=== PATIENT | female | born 1945 | race African-American/Black ===

== ENCOUNTER 2020-05-25 17:10 | Inpatient (IN) | payer OTHER ==
--- NOTE | 2020-05-25 18:57 | PDOC ---
History of Present Illness - General Chief Complaint: Pain, Acute Stated Complaint: FALL Time Seen by Provider: 05/25/20 17:54 - History of Present Illness Initial Comments: 75 yo female with PMH of HTN, HLD, Schizoaffective DO, Dementia brought in by EMS from [facility] after an unwitnessed fall. She reports falling after trying to open her home door. She is normally ambulatory but was unable to stand up after her fall. She is on aspirin. She denies loss of consciousness or head trauma. She denies fevers, chills, nausea, vomiting, diarrhea, dysuria, cp, sob. Past History - Medical History Allergies/Adverse Reactions: Allergies Allergy/AdvReac Type Severity Reaction Status Date / Time No Known Allergies Allergy Verified 05/25/20 17:23 Home Medications: Ambulatory Orders Acetaminophen [Tylenol] 325 mg PO BID 05/25/20 Amlodipine Besylate 10 mg PO DAILY 05/25/20 Aspirin [ASA -] 81 mg PO DAILY 05/25/20 Haloperidol Decanoate [Haldol Decanoate 100] 100 mg IM MONTHLY 05/25/20 COPD: No GI Disorders: Yes (CONSTIPATION) HTN: Yes Psychiatric Problems: Yes - Immunization History Immunization Up to Date: Yes - Psycho-Social/Smoking History Smoking History: Never smoked - Substance Abuse Hx (Audit-C & DAST Scrn) How often the patient has a drink containing alcohol: Never Score: In Men: 4 or > Positive; In Women: 3 or > Positive: 0 Screen Result (Pos requires Nsg. Audit-10AR): Negative In the last yr the pt used illegal drug/Rx for NonMed reason: No Score: Yes response is considered Positive: 0 Screen Result (Positive result requires Nsg. DAST-10): Negative Review of Systems - Review of Systems Able to Perform ROS?: Yes Constitutional: No: Chills, Diaphoresis, Fever HEENTM: No: Recent change in vision, Double Vision Respiratory: No: Cough, Shortness of Breath Cardiac (ROS): Yes: Syncope. No: Chest Pain, Irregular Heart Rate, Palpitations ABD/GI: No: Constipated, Diarrhea, Nausea, Vomiting : No: Burning, Dysuria, Frequency Integumentary: No: Dryness, Erythema, Flushing Neurological: No: Headache, Tremors, Dizziness Psychiatric: No: Anxiety, Depression, Emotional Problems Endocrine: No: Intolerance to Cold, Intolerance to Heat, Increased Urine *Physical Exam - Vital Signs Last Vital Signs Temp Pulse Resp BP Pulse Ox 98.7 F 106 H 18 132/65 100 05/25/20 17:23 05/25/20 17:23 05/25/20 17:23 05/25/20 17:23 05/25/20 17:23 - Physical Exam General Appearance: Yes: Appropriately Dressed. No: Apparent Distress, Disheveled HEENT: positive: EOMI, Normal Voice Neck: negative: Tender, Rigid Respiratory/Chest: positive: Lungs Clear, Normal Breath Sounds. negative: Chest Tender, Respiratory Distress Cardiovascular: positive: Regular Rhythm, Regular Rate, S1, S2, Gallop/S4 Gastrointestinal/Abdominal: positive: Normal Bowel Sounds, Flat, Soft. 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 CT head was negative. CT cervical identified a herniation at level C3-C4. Troponin was negative. CMP identified an JHONATAN (2.2) CBC was normal. Patient is admitted for JHONATAN and syncope of unknown etiology. Discharge - Discharge Information Problems reviewed: Yes Clinical Impression/Diagnosis: Fall, Weakness, JHONATAN (acute kidney injury), Syncope - Admission Yes - Follow up/Referral - Patient Discharge Instructions - Post Discharge Activity
[2020-05-25 19:05] LABS: HEMATOCRIT 37.4 % (32.4-45.2); HEMOGLOBIN 12.4 GM/dL (10.7-15.3); MCH 28.8 pg (25.7-33.7); MCHC 33.1 g/dl (32.0-36.0); MEAN CELL VOLUME 87.1 fl (80-96); MEAN PLT VOLUME 7.7 fl (7.5-11.1); PLATELET COUNT 310 K/MM3 (134-434); RDW 15.1 % (11.6-15.6); WHITE BLOOD COUNT 9.1 K/mm3 (4.0-10.0)
--- NOTE | 2020-05-25 19:06 | PDOC ---
Documentation entered by Darlyn Castaneda SCRIBE, acting as scribe for Gladys Mcpherson DO. Gladys Mcpherson DO: This documentation has been prepared by the brunildaibe, Darlyn Castaneda SCRIBE, under my direction and personally reviewed by me in its entirety. I confirm that the documentation accurately reflects all work, treatment, procedures, and medical decision making performed by me. Attending Attestation - Resident Resident Name: SuzieericBradleykiki - ED Attending Attestation I have performed the following: I have examined & evaluated the patient, The case was reviewed & discussed with the resident, I agree w/resident's findings & plan, Exceptions are as noted - HPI HPI: 05/25/20 17:57 Patient is a 75 year old female with a significant past medical history of dementia, HNT, HLD, constipation, and schizoaffective disorder, who presents to the ED with a fall from earlier today. Patient stated she was trying to open the door to her apartment when she felt week and fell. Patient denies: fevers, chills, LOC, any vision changes, SOB, chest pain, abdominal pain, extremity edema, any urinary issues, or any other related symptoms. Allergies: NKDA PCP: Dr. Himanshu Gray - Physicial Exam PE: 05/25/20 18:59 Gen: awake, alert, oriented x 3 head: nc/at heent: EOMI, PERRL, MMM neck: supple, no midline ttp, no stepoffs or deformities heart: +s1s2 reg lungs: cta b/l, no chest wall ttp, no deformities palpated back: no midline ttp, no stepoffs or deformities, no ttp across her back ext: FROM of all extremities, no pelvis ttp, pulses intact, muscle strength intact neuro: cn ii-xii grossly intact, no focal deficits - Medical Decision Making 05/25/20 19:02 a/p: 75yo female with a witnessed fall today [place] the [place] -was weak when trying to open her door -denies loc -denies pain at this time -pt with dementia and episodes of forgetfulness -will send labs, ekg, head ct, c spine -ua -will monitor and reassess 05/25/20 21:20 pt with cr 2.[address] neg 05/25/20 21:25 [facility] to [facility], baseline Cr 1.2 as of 05/25/20 21:54 pt with poss syncope and jhonatan resident discussed the case with Valeria who accepts pt to service Discharge - Discharge Information Problems reviewed: Yes Clinical Impression/Diagnosis: Fall, Weakness, JHONATAN (acute kidney injury), Syncope - Follow up/Referral Referrals: Himanshu Gray [Primary Care Provider] - - Patient Discharge Instructions - Post Discharge Activity
[2020-05-25 19:15] LABS: INR 0.97 (0.83-1.09); PROTHROMBIN TIME (PATIENT) 11.5 SEC (9.7-13.0)
[2020-05-25 19:18] LABS: ACTIVATED PTT 23.5 SECONDS (25.2-36.5)
[2020-05-25 19:42] LABS: ALBUMIN 4.1 g/dl (3.4-5.0); BILIRUBIN,TOTAL 0.4 mg/dL (0.2-1); BLOOD UREA NITROGEN 24.3 mg/dL (7-18); CALCIUM 9.9 mg/dL (8.5-10.1); CREATININE 2.2 mg/dL (0.55-1.3); POTASSIUM 4.7 mmol/L (3.5-5.1)
[2020-05-25] MEDS ORDERED: LACTATED RINGERS SOLUTION 1000 ML INFUS.BAG IV ONE (21:24)
--- NOTE | 2020-05-25 22:42 | HP ---
CHIEF COMPLAINT: I fell down on my behind PCP: Dr. Gray HISTORY OF PRESENT ILLNESS: Jada Alvarez is a 75 F with a PMH of Dementia, HTN, HLD, Constipation, and Schizoaffective disorder, who presented to ER from [facility] s/p unwitnessed fall. She reports that she fell down when she was trying to open her door, she dropped some lose change on the ground and tried to pick it back up. She reports that she doesn't remember how she fell, but she fell down and hit her buttocks on the ground. She was not able to get back up, so she called out for help and EMS arrived and brought her to the ER. She denies any prodromal symptoms like light headedness, nausea, vomiting, changes in vision, sweating, palpitations, chest pain, or SOB. after the event she denies any head trauma, LOC, or bowel/urinary incontinence. she is normally able to ambulate (w/o a walker). She reports that she does not remember any recent previous falls. ER course was notable for: (1) BUN/Crea 24.3/2.2 (2) CT C-spine: No acute fractures. Small to moderate central C3-C4 disk herniation (3) CT Head: No acute intracranial pathology Recent Travel: denies PAST MEDICAL HISTORY: As above HPI PAST SURGICAL HISTORY: Denies Social History: Smoking: denies Alcohol: denies Drugs: Denies Allergies No Known Allergies Allergy (Verified 05/25/20 17:23) HOME MEDICATIONS: Home Medications Medication Instructions Recorded Acetaminophen [Tylenol] 325 mg PO BID 05/25/20 Amlodipine Besylate 10 mg PO DAILY 05/25/20 Aspirin [ASA -] 81 mg PO DAILY 05/25/20 Haloperidol Decanoate [Haldol 100 mg IM MONTHLY 05/25/20 Decanoate 100] REVIEW OF SYSTEMS CONSTITUTIONAL: Absent: fever, chills, diaphoresis, generalized weakness, malaise, loss of appetite, weight change HEENT: Absent: rhinorrhea, nasal congestion, throat pain, difficulty swallowing, visual changes CARDIOVASCULAR: Absent: chest pain, syncope, palpitations, irregular heart rate, lightheadedness, peripheral edema RESPIRATORY: Absent: cough, shortness of breath, dyspnea with exertion, orthopnea, wheezing GASTROINTESTINAL: Absent: abdominal pain, abdominal distension, nausea, vomiting, diarrhea, constipation GENITOURINARY: Absent: dysuria, frequency, urgency, hesitancy, hematuria MUSCULOSKELETAL: Present: neck pain, buttock pain Absent: myalgia, arthralgia, joint swelling, back pain SKIN: Absent: rash, itching, pallor NEUROLOGIC: Absent: headache, focal weakness or paresthesias, dizziness, unsteady gait, seizure, bladder or bowel incontinence PHYSICAL EXAMINATION Vital Signs - 24 hr 05/25/20 05/25/20 17:23 19:15 Temperature 98.7 F 98.0 F Pulse Rate 106 H Pulse Rate [ 99 H Left Apical] Respiratory 18 18 Rate Blood Pressure 132/65 Blood Pressure 114/57 L [Right Arm] O2 Sat by Pulse 100 98 Oximetry (%) GENERAL: Awake, alert, and Oriented x2 (to place, person), in no acute distress. HEAD: Normal with no signs of trauma. EYES: Pupils equal, round and reactive to light, extraocular movements intact, sclera anicteric, conjunctiva clear. EARS, NOSE, THROAT: Ears normal, nares patent, oropharynx clear without exudates. Moist mucous membranes. NECK: Normal range of motion, supple, mild tenderness to palpation, without lymphadenopathy, JVD, or masses. LUNGS: Breath sounds equal, clear to auscultation bilaterally. No wheezes, and no crackles. No accessory muscle use. HEART: Regular rate and rhythm, normal S1 and S2 without murmur, rub, Gallop/S4. ABDOMEN: Soft, nontender, not distended, normoactive bowel sounds, no guarding, no rebound, no masses. UPPER EXTREMITIES: 2+ pulses, warm, well-perfused. No cyanosis. No clubbing. No peripheral edema. LOWER EXTREMITIES: 2+ pulses, warm, well-perfused. No calf tenderness. No peripheral edema. NEUROLOGICAL: Intact motor and sensory b/l upper and Lower extremities. Strength 4/5 all extremities PSYCHIATRIC: Cooperative. Good eye contact. Appropriate mood and affect. SKIN: Warm, dry, normal turgor, no rashes or lesions noted, normal capillary refill. Laboratory Results - last 24 hr 05/25/20 05/25/20 05/25/20 18:45 18:45 18:45 WBC 9.1 RBC 4.30 Hgb 12.4 Hct 37.4 MCV 87.1 MCH 28.8 MCHC 33.1 RDW 15.1 Plt Count 310 MPV 7.7 PT with INR 11.50 INR 0.97 PTT (Actin FS) 23.5 L Sodium 140 Potassium 4.7 Chloride 106 Carbon Dioxide 24 Anion Gap 11 BUN 24.3 H Creatinine 2.2 H Est GFR (CKD-EPI)AfAm 24.43 Est GFR (CKD-EPI)NonAf 21.08 Random Glucose 107 H Calcium 9.9 Total Bilirubin 0.4 AST 18 ALT 17 Alkaline Phosphatase 86 Creatine Kinase 138 Troponin I 0.02 Total Protein 8.0 Albumin 4.1 ASSESSMENT/PLAN: 75 F with a PMH of Dementia, HTN, HLD, Schizoaffective disorder, presented to ER from [place] s/p unwitnessed fall. Labs revealed BUN/Crea 24.3/2.2. CT head and CT c-spine showed no acute pathology. Patient is admitted to Tele for workup/management of Fall and JHONATAN. #Fall - unclear etiology, possibly 2/2 to syncope, she does not remember if she had LOC, she has Baseline dementia - CT head: no acute pathology - Orthostatic hypotension less likely - f/u with Echo, EKG in AM - CXR: cardiomegly, no acute infiltrates. - f/u UA to r/o infectious cause for Fall - f/u B12 - PT is consulted - Trend trop - Pain management with Tylenol 325mg Q4H PRN #JHONATAN on CKD - last known Crea, from half-way (1.2 on 11/2019) - f/u kidney/renal u/s - f/u Urine protein/Crea ration and Urinary electrolytes - Nephro is consulted, will f/u with recs - Avoid nephrotoxic drugs #HTN - Will hold Home meds for now (ER bp-114/57), will continue to monitor v/s - Continue ASA 81 #Schizoaffective disorder - Holding Haldol, continue to monitor #FEN - No standing fluids - Continue to monitor electrolytes - Sodium controlled diet #DVT PPX - Heparin 5000u SQ Q8H #DISPO - Will continue to monitor on Tele, pending Nephro recs Visit type - Medication Review Med list reviewed for High Risk Meds patients 65 and older: Yes - Emergency Visit Emergency Visit: Yes ED Registration Date: 05/25/20 Care time: The patient presented to the Emergency Department on the above date and was hospitalized for further evaluation of their emergent condition. - New Patient This patient is new to me today: Yes Date on this admission: 05/28/20 - Critical Care Critical Care patient: No ATTENDING PHYSICIAN STATEMENT I saw and evaluated the patient. I reviewed the resident's note and discussed the case with the resident. I agree with the resident's findings and plan as documented. SUBJECTIVE: OBJECTIVE: ASSESSMENT AND PLAN:
[2020-05-25] MEDS ORDERED: HEPARIN NA (PORCINE) 5,000 UNITS/ML 1ML VIAL ONE (23:49)
[2020-05-25] MEDS ORDERED: ACETAMINOPHEN 325 MG TABLET (FP) PO PRN (23:50)
--- NOTE | 2020-05-25 23:53 | PN ---
Teaching Attending Note Name of Resident: Marissa Ruiz ATTENDING PHYSICIAN STATEMENT I saw and evaluated the patient. I reviewed the resident's note and discussed the case with the resident. I agree with the resident's findings and plan as documented. SUBJECTIVE: 75 F with a PMH of Dementia, HTN, HLD, Constipation, and Schizoaffective disor vanessa, who presented to ER from [facility] after having unwitnessed fall. As per patient, she was trying to picker / packer coins from the floor and fell down on her buttocks. No head trauma. She exactly doesn't remember how she fell down but denied dizziness, lightheadedness, chest pain, palpitations prior or after the fall. She was not able to get up so she called for help and ems was called. It's unsure that she lost consciousness how ever upon asking again she denied LOC. No urinary symptoms OBJECTIVE: Last Vital Signs Temp Pulse Resp BP Pulse Ox 98.0 F 99 H 18 114/57 L 98 05/25/20 19:15 05/25/20 19:15 05/25/20 19:15 05/25/20 19:15 05/25/20 19:15 GENERAL elderly female, NAD, speaks slow HEENT: PERRLA, EOMI, NC/AT NECK: supple, no lymphadenopathy, thyroid WNL CARDIOVASCULAR: RRR, s1s2+, No MRG LUNGS/RESPIRATORY: no respiratory distress, CTAB GI/ABDOMEN: non tender soft, ND, +BS, no organomegaly : no CVA tenderness MSK/EXTREMITIES: no edema, peripheral pulses + DERM/SKIN: warm and dry, no pallor, no jaundice, no rash, no pathologic- appearing bruising, no skin breakdown, no cuts, no lesions NEUROLOGICAL: GCS 15, CN II-XII grossly intact,No focal neurologic deficit BUN/CR- 24.3/2.[address] C spine no acute pathology Small to moderate central C3-C4 disk herniation ASSESSMENT AND PLAN: S/p FAll cant rule out syncopal episode JHONATAN on CKD Dementia, HTN, HLD, Schizoaffective disorder Admit to tele Serial cardiac enzymes, EKG ECHO UA, urine lytes, urine spot pr/cr TSH,b12,mg,phos,cpk, vit D renal US nephrology eval gentle hydration resume home meds DVT ppx PT eval discussed with house staff in details in conference r
[2020-05-26] MEDS: HEPARIN NA (PORCINE) 5,000 UNITS/ML 1ML VIAL SQ SCH ×4 (00:16→21:22)
[2020-05-26] MEDS ORDERED: SODIUM CHLORIDE 1,000 ML IV SCH (05:00)
[2020-05-26] MEDS ORDERED: HEPARIN NA (PORCINE) 5,000 UNITS/ML 1ML VIAL ONE ×2 (05:14→14:13)
[2020-05-26 05:55] LABS: EPI CELLS 19 /uL (0-25.1); HYALINE CASTS 5 /uL (0-3.1); URINE APPEARANCE CLOUDY; URINE BACTERIA 57 /uL (0-1359); URINE BILIRUBIN NEGATIVE (NEGATIVE); URINE COLOR YELLOW; URINE GLUCOSE (UA) 1+ (NEGATIVE); URINE KETONE TRACE (NEGATIVE); URINE LEUK ESTERASE NEGATIVE (NEGATIVE); URINE NITRITE NEGATIVE (NEGATIVE); URINE PROTEIN 1+ (NEGATIVE); URINE RBC 11 /uL (0-23.9); URINE UROBILINOGEN 0.2 mg/dL (0.2-1.0); URINE WBC 18 /uL (0-25.8)
[2020-05-26 06:01] LABS: HEMATOCRIT 32.9 % (32.4-45.2); HEMOGLOBIN 10.9 GM/dL (10.7-15.3); MCH 28.6 pg (25.7-33.7); MEAN CELL VOLUME 86.6 fl (80-96); MEAN PLT VOLUME 7.4 fl (7.5-11.1); PLATELET COUNT 293 K/MM3 (134-434); RDW 15.4 % (11.6-15.6); WHITE BLOOD COUNT 7.7 K/mm3 (4.0-10.0)
[2020-05-26 07:05] LABS: ALBUMIN 3.5 g/dl (3.4-5.0); BILIRUBIN,TOTAL 0.4 mg/dL (0.2-1); BLOOD UREA NITROGEN 29.5 mg/dL (7-18); CALCIUM 9.3 mg/dL (8.5-10.1); CREATININE 1.8 mg/dL (0.55-1.3); MAGNESIUM 2.6 mg/dL (1.8-2.4); PHOSPHOROUS 4.2 mg/dL (2.5-4.9); POTASSIUM 4.5 mmol/L (3.5-5.1)
[2020-05-26] MEDS ORDERED: ASPIRIN 81 MG CHEWABLE TABLETS ONE (09:42)
[2020-05-26] MEDS: ASPIRIN 81 MG CHEWABLE TABLETS PO SCH (10:03)
--- NOTE | 2020-05-26 10:45 | PN ---
Progress Note (short form) - Note Progress Note: NEUROSURGERY CONSULT DICTATED Pt examined Chart reviewed CT reviewed h/o dementia, HTN, HLD, and Schizoaffective disorder here after unwitnessed fall. Denies any prior light headedness, nausea, vomiting, changes in vision, chest pain, or SOB. Amnestic of the fall itself. Denies weakness, numbness, bowel/urinary incontinence. She reports being able to ambulate by herself PE: AF, VSS General- unremarkable, speech fkuent, memory poor; Neck- with no tenderness, slight kyphosis CN- intact; Motor- at least 4/5 B UE/LE; Sensation- intact LT; DTR- hyporeflexic Head CT- no acute fx or bleed, mild atrophy C spine CT- reversal of lordosis, spondylosis and DDD multilevel, small central disc protrusion C3-4 > C4-5, partially calcified Cervical DDD with spondylosis and kyphosis Doubt acute herniation given asymptomatic nature of the dz PT for mobility and safety Soft collar for comfort No neurosurgical intervention indicated
--- NOTE | 2020-05-26 11:14 | EKG ---
Test Reason : Blood Pressure : / mmHG Vent. Rate : 094 BPM Atrial Rate : 094 BPM P-R Int : 122 ms QRS Dur : 098 ms QT Int : 366 ms P-R-T Axes : 074 014 054 degrees QTc Int : 457 ms NORMAL SINUS RHYTHM POSSIBLE ANTERIOR INFARCT , AGE UNDETERMINED NONSPECIFIC ST AND T WAVE ABNORMALITY Confirmed by BART SHEPPARD MD ([id number]) on 05/26/2020 11:14:49 AM Referred By: Confirmed By:BART SHEPPARD MD
--- NOTE | 2020-05-26 12:55 | ECHO ---
Version: 1 Name: MICHAEL PICKERING Exam: Adult Echocardiogram Study Date: 05/26/2020, 11:35 AM Age: 75 Years MMode/2D Measurements & Calculations IVSd: 0.89 cm LVIDs: 4.8 cm LVIDd: 5.8 cm LVPWd: 1.00 cm LAV (MOD-bp): 60.0 ml ACS: 1.50 cm Ao root diam: 2.9 cm LVOT diam: 2.04 cm LA dimension: 3.5 cm Doppler Measurements & Calculations MV E max daniel: 83.3 cm/sec Med E/e': 22.7 MV A max daniel: 138.8 cm/sec Med Peak E' Daniel: 3.7 cm/sec MV E/A: 0.60 Lat E/e': 7.7 Lat Peak E' Daniel: 10.8 cm/sec MR max P.7 mmHg Ao max P.7 mmHg VENANCIO(I,D): 2.25 cm Ao mean P.9 mmHg LV V1 mean: 65.4 cm/sec Ao V2 max: 129.5 cm/sec LV V1 mean P.95 mmHg PI end-d daniel: 78.7 cm/sec TR max daniel: 203.8 cm/sec TR max P.6 mmHg Left Ventricle The left ventricle is mildly dilated. Ejection Fraction = 30-35%. There is severe global hypokinesis of the left ventricle. Right Ventricle The right ventricle is normal in size and function. Atria The left atrium is mildly dilated. Mitral Valve The mitral valve is grossly normal. There is no mitral valve stenosis. The mitral regurgitant jet is eccentrically directed. There is moderate to severe mitral regurgitation. Tricuspid Valve The tricuspid valve is not well visualized, but is grossly normal. There is mild tricuspid regurgita tion. Right ventricular systolic pressure is normal. Aortic Valve The aortic valve opens well. No hemodynamically significant valvular aortic stenosis. No aortic regu rgitation is present. Pulmonic Valve The pulmonic valve is not well seen, but is grossly normal. There is no pulmonic valvular stenosis. Mild pulmonic valvular regurgitation. Great Vessels The aortic root is normal size. Pericardium/Pleura There is no pericardial effusion. Summary Statements The left ventricle is mildly dilated. There is severe global hypokinesis of the left ventricle. Ejection Fraction = 30-35%. The left atrium is mildly dilated. The mitral regurgitant jet is eccentrically directed. There is moderate to severe mitral regurgitation. There is mild tricuspid regurgitation. The aortic root is normal size. There is no pericardial effusion. MD Rothman *Gris 05/26/2020, 12:55 PM Ordering Physician: Marissa Lehman Referring Physician: MARISSA LEHMAN Performed By: Mady Blackburn
--- NOTE | 2020-05-26 13:06 | PN ---
Physical Exam: SUBJECTIVE: Patient seen and examined in the ED awaiting bed assignment. She tells me she feels well and denies any malaise. She is not a good historian but overall can answers some questions appropriately. I called her brother Shaista Evans [phone] to obtain further information on patient, but brother not familiar with her past medical history. Tells me that patient usually is seen at [facility]. I called [facility] [phone] and spoke to Adin Day (case management) and fax number provided so that past medical records can be faxed over to me. Adin was not able to answer my questions as to pmhx but informed me she will fax over documents to our fax [phone]. OBJECTIVE: Patient is a 75 year old female (resident of [facility]). Patient was admitted on 05/25/2020 after she fell at her facility. Per admitting report, patient fell and was unable to get back up on her own. No reported prodormal symptoms. She was found to have JHONATAN (unknown baseline). Routine echo done today low EF and cardiology was consulted. C spine shows c3-c4 disc herniation. She was evaluated by neurosurgery and a soft collar recommended. covid status: pending Vital Signs Period Temp Pulse Resp BP Sys/Ontiveros Pulse Ox Last 24 Hr 97.9 F-98.7 F 71-106 17-19 99-132/52-74 96-100 GENERAL: The patient is awake, alert, forgetful HEAD: Normal with no signs of trauma. EYES: PERRL, extraocular movements intact, sclera anicteric, conjunctiva clear. No ptosis. ENT: Ears normal, nares patent, oropharynx clear without exudates, moist mucous membranes. NECK: Trachea midline, full range of motion, supple. LUNGS: Breath sounds equal, clear to auscultation bilaterally, no wheezes, no crackles, no accessory muscle use. HEART: Regular rate and rhythm ABDOMEN: Soft, nontender, nondistended, normoactive bowel sounds EXTREMITIES: no edema. NEUROLOGICAL: Normal speech, gait not observed. PSYCH: Normal mood, normal affect. SKIN: Warm, dry, normal turgor, no rashes or lesions noted Laboratory Results - last 24 hr 05/25/20 05/25/20 05/25/20 18:45 18:45 18:45 WBC 9.1 RBC 4.30 Hgb 12.4 Hct 37.4 MCV 87.1 MCH 28.8 MCHC 33.1 RDW 15.1 Plt Count 310 MPV 7.7 PT with INR 11.50 INR 0.97 PTT (Actin FS) 23.5 L Sodium 140 Potassium 4.7 Chloride 106 Carbon Dioxide 24 Anion Gap 11 BUN 24.3 H Creatinine 2.2 H Est GFR (CKD-EPI)AfAm 24.43 Est GFR (CKD-EPI)NonAf 21.08 Random Glucose 107 H Calcium 9.9 Phosphorus Magnesium Total Bilirubin 0.4 AST 18 ALT 17 Alkaline Phosphatase 86 Creatine Kinase 138 Creatine Kinase Index CK-MB (CK-2) Troponin I 0.02 Total Protein 8.0 Albumin 4.1 Vitamin B12 Urine Color Urine Appearance Urine pH Ur Specific [place] Urine Protein Urine Glucose (UA) Urine Ketones Urine Blood Urine Nitrite Urine Bilirubin Urine Urobilinogen Ur Leukocyte Esterase Urine WBC (Auto) Urine RBC (Auto) Urine Casts (Auto) U Pathogenic Cast Auto U Epithel Cells (Auto) Urine Bacteria (Auto) Ur Random Creatinine U Random Total Protein Ur Random Sodium Ur Random Potassium Ur Random Chloride Protein/Creatinin Ratio 05/26/20 05/26/20 05/26/20 00:29 05:30 05:30 WBC RBC Hgb Hct MCV MCH MCHC RDW Plt Count MPV PT with INR INR PTT (Actin FS) Sodium Potassium Chloride Carbon Dioxide Anion Gap BUN Creatinine Est GFR (CKD-EPI)AfAm Est GFR (CKD-EPI)NonAf Random Glucose Calcium Phosphorus Magnesium Total Bilirubin AST ALT Alkaline Phosphatase Creatine Kinase Creatine Kinase Index CK-MB (CK-2) Troponin I 0.03 Total Protein Albumin Vitamin B12 Urine Color Yellow Urine Appearance Cloudy Urine pH 5.0 Ur Specific [place] 1.022 Urine Protein 1+ H Urine Glucose (UA) 1+ H Urine Ketones Trace H Urine Blood Negative Urine Nitrite Negative Urine Bilirubin Negative Urine Urobilinogen 0.2 Ur Leukocyte Esterase Negative Urine WBC (Auto) 18 Urine RBC (Auto) 11 Urine Casts (Auto) 5 U Pathogenic Cast Auto Non seen U Epithel Cells (Auto) 19 Urine Bacteria (Auto) 57 Ur Random Creatinine 254.0 H U Random Total Protein 82.9 H Ur Random Sodium 38 L Ur Random Potassium 79.0 Ur Random Chloride 44 L Protein/Creatinin Ratio 0.3 05/26/20 05/26/20 05:41 05:41 WBC 7.7 RBC 3.80 Hgb 10.9 Hct 32.9 MCV 86.6 MCH 28.6 MCHC 33.0 RDW 15.4 Plt Count 293 MPV 7.4 L PT with INR INR PTT (Actin FS) Sodium 142 Potassium 4.5 Chloride 107 Carbon Dioxide 27 Anion Gap 7 L BUN 29.5 H Creatinine 1.8 H Est GFR (CKD-EPI)AfAm 31.14 Est GFR (CKD-EPI)NonAf 26.87 Random Glucose 76 Calcium 9.3 Phosphorus 4.2 Magnesium 2.6 H Total Bilirubin 0.4 AST 23 ALT 16 Alkaline Phosphatase 76 Creatine Kinase 379 H Creatine Kinase Index 1.8 CK-MB (CK-2) 6.9 H Troponin I 0.04 Total Protein 7.0 Albumin 3.5 Vitamin B12 702 Urine Color Urine Appearance Urine pH Ur Specific [place] Urine Protein Urine Glucose (UA) Urine Ketones Urine Blood Urine Nitrite Urine Bilirubin Urine Urobilinogen Ur Leukocyte Esterase Urine WBC (Auto) Urine RBC (Auto) Urine Casts (Auto) U Pathogenic Cast Auto U Epithel Cells (Auto) Urine Bacteria (Auto) Ur Random Creatinine U Random Total Protein Ur Random Sodium Ur Random Potassium Ur Random Chloride Protein/Creatinin Ratio Active Medications Generic Name Dose Route Start Last Admin Trade Name Freq PRN Reason Stop Dose Admin Acetaminophen 325 mg 05/25/20 23:50 Tylenol - PO Q4H PRN MODERATE PAIN 4-6 Aspirin 81 mg 05/26/20 10:00 05/26/20 10:03 Asa - PO 81 mg DAILY PAWAN Administration Atorvastatin Calcium 80 mg 05/26/20 22:00 Lipitor - PO HS PAWAN Heparin Sodium (Porcine) 5,000 unit 05/25/20 23:45 05/26/20 06:18 Heparin - SQ 5,000 unit TID PAWAN Administration Sodium Chloride 1,000 mls @ 75 mls/hr 05/26/20 05:00 05/26/20 07:47 Normal Saline - IV 75 mls/hr ASDIR PAWAN Administration ASSESSMENT/PLAN: Problem List - Problems (1) Cervical disc herniation Assessment/Plan: C spine CT- reversal of lordosis, spondylosis and DDD multilevel, small central disc protrusion C3-4 to C4-5, partially calcified for soft collar seen by neurosurgery physical therapy Code(s): M50.20 - OTHER CERVICAL DISC DISPLACEMENT, UNSP CERVICAL REGION (2) Systolic CHF Assessment/Plan: echo shows severe global LV systolic dysfunction LVEF 30-35%. patient denies any shortness of breath or chest pain. no echos done at [facility] to compare. Patient with recent admission to [facility] as per her brother, attempting to get records from her nursing facility. Seen by cardiology, recommend low dose metoprolol or toprol 25mg xl no diuretics recommended as no signs of volume overload. she is on room air and stable. jermain/arb recommended once renal function improves Code(s): I50.20 - UNSPECIFIED SYSTOLIC (CONGESTIVE) HEART FAILURE (3) Fall Assessment/Plan: for PT eval maintain safety precautions fall precautions Code(s): W19.XXXA - UNSPECIFIED FALL, INITIAL ENCOUNTER (4) JHONATAN (acute kidney injury) Assessment/Plan: renal ultrasound shows moderately atrophic kidneys with no evidence of hydronephrosis or acute path. unknown baseline creatinine Code(s): N17.9 - ACUTE KIDNEY FAILURE, UNSPECIFIED (5) Syncope Assessment/Plan: monitor on tele for any arrhythmias. monitor vitals labs, orthostatics head ct negative for acute pathology Code(s): R55 - SYNCOPE AND COLLAPSE (6) Weakness Code(s): R53.1 - WEAKNESS (7) DVT prophylaxis Assessment/Plan: heparin tid Code(s): Z29.9 - ENCOUNTER FOR PROPHYLACTIC MEASURES, UNSPECIFIED Visit type - Emergency Visit Emergency Visit: Yes ED Registration Date: 05/25/20 Care time: The patient presented to the Emergency Department on the above date and was hospitalized for further evaluation of their emergent condition. - New Patient This patient is new to me today: Yes Date on this admission: 05/26/20 - Critical Care Critical Care patient: No - Discharge Referral Referred to [facility] Med P.C.: No - Medication Review Med list reviewed for High Risk Meds patients 65 and older: No
--- NOTE | 2020-05-26 15:12 | CON.CARD ---
Consult Consult Specialty:: Cardiology Referred by:: Hospitalist Reason for Consultation:: low ef, falls, confusion - History of Present Illness Chief Complaint: fall History of Present Illness: 75 year old woman with pmh HTN, HLD, Dementia, schizoaffective disorder, admitted from [facility] after a fall. Pt was seen and examined today in [facility]. she is awake and alert. 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 She denies any LOC. She denies any chest pain, sob, palpitations, lightheadedness, or dizziness prior to falling. No sob, pnd, orthopnea, or LE edema. She denies knowledge of any prior cardiac conditions but she states that she has been admitted to [facility] previously and she thinks that they may have said something about her heart. 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 Cardio/Vascular: Yes: HTN - Smoking History Smoking history: Never smoked - Social History Usual Living Arrangement: Assisted Living Home Medications - Allergies Allergies/Adverse Reactions: Allergies Allergy/AdvReac Type Severity Reaction Status Date / Time No Known Allergies Allergy Verified 05/25/20 17:23 - Home Medications Home Medications: Ambulatory Orders Acetaminophen [Tylenol] 325 mg PO BID 05/25/20 Amlodipine Besylate 10 mg PO DAILY 05/25/20 Aspirin [ASA -] 81 mg PO DAILY 05/25/20 Haloperidol Decanoate [Haldol Decanoate 100] 100 mg IM MONTHLY 05/25/20 Family Medical History Family History: Denies Review of Systems - Review of Systems Constitutional: denies: No Symptoms, Chills, Diaphoresis, Fever, Lethargy, Loss of Appetite, Malaise, Night Sweats, Unintentional Wgt. Loss, Weakness, Other Eyes: denies: No Symptoms, Blind Spots, Blurred Vision, Double Vision, Eye Pain, Floaters, Photophobia, Recent Change in Vision, Other HENT: denies: No Symptoms, Difficult Swallowing, Ear Discharge, Ear Pain, Epistaxis, Gingival Bleeding, Hearing Loss, Mouth Swelling, Nasal Congestion, Ocular Prosthesis, Throat Pain, Toothache, Ringing in Ears, Other Neck: denies: No Symptoms, Decreased ROM, Lumps, Pain on Movement, Stiffness, Swollen Glands, Tenderness, Other Cardiovascular: denies: No Symptoms, Chest Pain, Edema, Palpitations, Shortness of Breath, Other Respiratory: denies: No Symptoms, Cough, Exercise Intolerance, Hemoptysis, Orthopnea, PND, Snoring, SOB, SOB on Exertion, Wheezing, Other Gastrointestinal: denies: No Symptoms, Abdominal Pain, Bloating, Constipation, Diarrhea, Dysphagia, Indigestion, Melena, Nausea, Rectal Bleeding, Vomiting, Vomiting Blood, Other Genitourinary: denies: No Symptoms, Burning, Discharge, Dysuria, Flank Pain, Frequency, Hematuria, Incontinence, Lesions, Menses, Pain, Testicular Mass, Testicular Pain, Testicular Swelling, Urgency, Vaginal Bleeding, Other Breasts: denies: No Symptoms Reported, See HPI, Breast Implants, Discharge from Nipple, Lumps, Pain, Skin Changes, Other Musculoskeletal: denies: No Symptoms, Back Pain, Crepitus, Decreased ROM, Extremity Pain, Joint Pain, Joint Swelling, Muscle Pain, Muscle Cramps, Muscle Weakness, Other Integumentary: denies: No Symptoms, Blister, Bruising, Change in Color, Eczema, Erythema, Incision, Lesions, Lump, Pallor, Pruritis, Rash, Wound, Other Neurological: denies: No Symptoms, Change in LOC, Change in Speech, Confusion, Dizziness, Headache, Incoordination, Numbness, Parasthesia, Pre-Existing Deficit, Seizure, Syncope, Tremors, Unsteady Gait, Weakness, Other Endocrine: denies: No Symptoms, Excessive Sweating, Flushing, Increased Hunger, Increased Thirst, Intolerance to Cold, Intolerance to Heat, Unexplained Weight Gain, Unexplained Weight Loss, Other Hematology/Lymphatic: denies: No Symptoms, Easily Bruised, Excessive Bleeding, Swollen Glands, Other Psychiatric: denies: No Symptoms, Altered Sleep Pattern, Anxiety, Depression, Hallucinations, Panic, Paranoia, Suicidal, Other - Risk Factors Known Risk Factors: Yes: Age, Hypertension Vital Signs: Vital Signs Temperature 98.9 F 05/26/20 14:30 Pulse Rate 97 H 05/26/20 14:30 Respiratory Rate 17 05/26/20 10:03 Blood Pressure 103/65 05/26/20 14:30 O2 Sat by Pulse Oximetry (%) 100 05/26/20 14:30 Constitutional: Yes: No Distress, Calm Eyes: Yes: Conjunctiva Clear, EOM Intact HENT: Yes: Atraumatic, Normocephalic Neck: Yes: Supple, Trachea Midline Respiratory: Yes: Regular, CTA Bilaterally. No: Rales, Rhonchi, SOB, Wheezes Gastrointestinal: Yes: Normal Bowel Sounds, Soft. No: Distention, Tenderness Cardiovascular: Yes: Regular Rate and Rhythm. No: Bradycardia, Tachycardia, Pulse Irregular, Gallop, Rub, Varicosities JVD: No Carotid Bruit: No PMI: Non-Displaced Heart Sounds: Yes: S1, S2. No: Split S2, S3, S4, Clicks, Gallop, Rub, Bruit Murmur: No: Systolic Murmur, Diastolic Murmur Musculoskeletal: Yes: WNL Extremities: Yes: WNL Edema: No Peripheral Pulses WNL: Yes Peripheral Pulses: 2+ Left Doralis Pedis, 2+ Right Dorsalis Pedis Neurological: Yes: Alert Psychiatric: Yes: Alert - Other Data Labs, Other Data: CBC, BMP 05/26/20 05:41 05/26/20 05:41 INR, PTT INR 0.97 (0.83-1.09) 05/25/20 18:45 Troponin, BNP 05/25/20 05/26/20 05/26/20 18:45 00:29 05:41 Troponin I 0.02 0.03 0.04 Troponin, BNP 05/25/20 05/26/20 05/26/20 18:45 00:29 05:41 Troponin I 0.02 0.03 0.04 nsr 94bpm, possible anterior infarct age undetermined, nsst Echo: Report Reviewed Imaging - Results Chest X-ray: Report Reviewed, Image Reviewed EKG: Report Reviewed, Image Reviewed Other: Report Reviewed, Image Reviewed Assessment/Plan 75 year old woman with pmh HTN, HLD, Dementia, schizoaffective disorder, admitted from [facility] after a fall. she is awake and alert. 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 She denies any LOC. She denies any chest pain, sob, palpitations, lightheadedness, or dizziness prior to falling. No sob, pnd, orthopnea, or LE edema. She denies knowledge of any prior cardiac conditions but she states that she has been admitted to [facility] previously and she thinks that they may have said something about her heart. Cardiomyopathy and mitral regurgitation -severe global LV systolic dysfunction LVEF 30-35% -moderate to severe mitral regurgitation -unlikely an acute event -pt is euvolemic on exam with no chest pain or sob -most likely chronic systolic chf -reports being admitted at [facility] previously, would be helpful to review records if an echo was done -discussed with her if she would even consider a cardiac cath or open heart surgery and she states she would not want that -would recc to pursue conservative management -start low dose Metoprolol, can use Toprol XL 25mg daily as long as BP tolerates -once creatinine stable can start low dose [id number] ie Lisinopril 2.5mg daily if bp tolerates -does not require diuretics at this time -would not recc pursuing invasive work up Fall-pt reports mechanical fall -the history she gave me appears consistent with history she reported earlier to others -does not appear that there was LOC -unlikely arrhythmia induced despite her cardiomyopathy -can monitor tele 24 hours, if no arrhythmias can have further event monitoring as outpatient Please call with any questions.
[2020-05-26 15:38] VITALS: BMI 24.1
--- NOTE | 2020-05-26 16:02 | CONSULT ---
Consult Consult Specialty:: Nephrology Reason for Consultation:: JHONATAN - History of Present Illness Chief Complaint: s/p fall History of Present Illness: Pt is a 75 year old female with pmhx of dementia, htn, hld, constipation, who presents to er after a fall. 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 She denies history of ckd. She is a poor historian. She says that she fell down while trying to open a door. She does not remember how she fell but remembers falling on her buttocks. She denies fevers or chills. SHe denies LOC. 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 Cardio/Vascular: Yes: HTN - Smoking History Smoking history: Never smoked - Social History Usual Living Arrangement: Assisted Living Home Medications - Allergies Allergies/Adverse Reactions: Allergies Allergy/AdvReac Type Severity Reaction Status Date / Time No Known Allergies Allergy Verified 05/25/20 17:23 - Home Medications Home Medications: Ambulatory Orders Acetaminophen [Tylenol] 325 mg PO BID 05/25/20 Amlodipine Besylate 10 mg PO DAILY 05/25/20 Aspirin [ASA -] 81 mg PO DAILY 05/25/20 Haloperidol Decanoate [Haldol Decanoate 100] 100 mg IM MONTHLY 05/25/20 Family Medical History Family History: Denies Review of Systems - Review of Systems Constitutional: reports: Malaise Eyes: reports: No Symptoms HENT: reports: No Symptoms Neck: reports: No Symptoms Cardiovascular: reports: No Symptoms Respiratory: reports: No Symptoms Gastrointestinal: reports: No Symptoms Genitourinary: reports: No Symptoms Musculoskeletal: reports: No Symptoms Integumentary: reports: No Symptoms Neurological: reports: No Symptoms Endocrine: reports: No Symptoms Hematology/Lymphatic: reports: No Symptoms Psychiatric: reports: No Symptoms Physical Exam Vital Signs: Vital Signs Temperature 98.9 F 05/26/20 15:29 Pulse Rate 94 H 05/26/20 15:29 Respiratory Rate 16 05/26/20 15:29 Blood Pressure 140/94 05/26/20 15:29 O2 Sat by Pulse Oximetry (%) 99 05/26/20 15:29 Constitutional: Yes: Calm Eyes: Yes: Conjunctiva Clear HENT: Yes: Atraumatic Neck: Yes: Supple Cardiovascular: Yes: S1, S2 Respiratory: Yes: CTA Bilaterally Gastrointestinal: Yes: Normal Bowel Sounds, Soft Musculoskeletal: Yes: WNL Edema: No Neurological: Yes: Confusion Labs: CBC, BMP 05/26/20 05:41 05/26/20 05:41 Imaging - Results Ultrasound: Report Reviewed Problem List - Problems (1) JHONATAN (acute kidney injury) Code(s): N17.9 - ACUTE KIDNEY FAILURE, UNSPECIFIED (2) Fall Code(s): W19.XXXA - UNSPECIFIED FALL, INITIAL ENCOUNTER Assessment/Plan Current Medications Generic Name Dose Route Start Last Admin Trade Name Freq PRN Reason Stop Dose Admin Acetaminophen 325 mg 05/25/20 23:50 Tylenol - PO Q4H PRN MODERATE PAIN 4-6 Aspirin 81 mg 05/26/20 10:00 05/26/20 10:03 Asa - PO 81 mg DAILY PAWAN Administration Atorvastatin Calcium 80 mg 05/26/20 22:00 Lipitor - PO HS PAWAN Heparin Sodium (Porcine) 5,000 unit 05/25/20 23:45 05/26/20 14:19 Heparin - SQ 5,000 unit TID PAWAN Administration Sodium Chloride 1,000 mls @ 75 mls/hr 05/26/20 05:00 05/26/20 07:47 Normal Saline - IV 75 mls/hr ASDIR PAWAN Administration Metoprolol Succinate 25 mg 05/26/20 19:00 Toprol Xl - PO DAILY PAWAN Laboratory Tests 04/24/11 05/25/20 05/26/20 13:00 18:45 05:41 Creatinine 0.8 2.2 H 1.8 H Impression 1. jhonatan 2. s/p fall 3. htn 4. hld 5. alzheimers dementia Plan - cont fluids - repeat labs in am - bp is stable - reservations manager is improving - renal ultrasound reviewed
[2020-05-26] MEDS ORDERED: SODIUM CHLORIDE 0.45% 1,000 ML IV SCH (19:30)
[2020-05-26] MEDS: metoPROLOL SUCCINATE 25 MG TAB.SR.24H (FP) PO SCH (20:10)
--- NOTE | 2020-05-26 20:31 | CONS ---
DATE OF CONSULTATION: 05/26/2020 REQUESTING PHYSICIAN: Jagdeep Alvarez NP. CONSULTING PHYSICIAN: Bebe Correa MD, neurosurgery. CHIEF COMPLAINT: Cervical disk disease. HISTORY OF PRESENT ILLNESS: The patient is a 75-year-old right-handed female with a history of hypertension, dementia, hypercholesterolemia, and schizoaffective disorder who was here for an evaluation after an unwitnessed fall. The patient denies any prior headache, lightheadedness, nausea, vomiting, change of vision, chest pain or shortness of breath prior to the fall. She does not remember what happened during the fall and after the fall. This occurred yesterday. Presently, she denies any headache, no nausea or vomiting. She has no bowel or bladder incontinence. She states she is able to ambulate by herself without any assistive devices. She has no increasing weakness or numbness to her extremities. PAST MEDICAL HISTORY: Significant for hypertension, hypercholesterolemia, dementia, schizoaffective disorder. CURRENT MEDICATIONS: Include: 1. Subcutaneous heparin. 2. Lipitor. 3. Baby aspirin. 4. Tylenol. ALLERGIES: No known drug allergies. FAMILY HISTORY: Noncontributory. SOCIAL HISTORY: She does not smoke or drink. She lives in an assisted living facility. REVIEW OF SYSTEMS: Otherwise negative for other major constitutional, head/neck, cardiovascular, pulmonary, gastrointestinal, genitourinary, endocrinologic, neurologic, or psychological problems except for the above. PHYSICAL EXAMINATION: Vital signs: Temperature 98.6, blood pressure 106/56 with pulse rate of 78, O2 saturation 100% on room air. HEENT: Normocephalic, atraumatic, anicteric. Neck: Supple with no lymphadenopathy, no carotid bruit. Coronary: Regular rhythm. Lungs: Clear to auscultation bilaterally. Abdomen: Benign. Extremities: No signs of DVT. Back: Examination of her cervical spine demonstrated no paraspinal muscle spasm and no tenderness to palpation. She is slightly kyphotic in a flexed position. Neurologic: She is awake, alert, oriented x2. Her speech is fluent. Memory is poor however. Cranial nerves examination intact 2-12. Motor examination shows at least 4/5 strength in bilateral upper and lower extremities. Sensory examination is intact to light touch. Deep tendon reflexes are hyporeflexive throughout. Gait is not tested for safety reasons. Cerebellar examination demonstrates no tremor. LABORATORY EXAMINATION: Shows white blood cell count of 7.7, hemoglobin is 10.9, INR is 0.97. PTT is 23.5. BUN and creatinine are 30 and 1.8 respectively. Estimated GFR is 31. Troponin 0.02. COVID serology is pending. CT scan of the head demonstrated mild cerebral atrophy. There is no acute fracture or hematoma. CT scan of cervical spine demonstrated multilevel degenerative disk disease with spondylosis. There are also facet arthrosis. There is a calcified central disk protrusion which is small to moderate in nature at C3-4. There is also small calcified central disk protrusion at C4-5. There is no fracture or dislocation. Kyphotic deformity is noted in the mid cervical spine through the upper cervical spine. IMPRESSION: 1. Multilevel cervical degenerative disk disease and spondylosis with central disk protrusion at C3-4 and C4-5, minimal if at all symptomatic. 2. Dementia. 3. Schizoaffective disorder. 4. Hypertension. 5. Hypercholesterolemia. RECOMMENDATION: The patient presents with mechanical fall after probable syncopal episode. She denies any headache, nausea, vomiting, weakness, numbness of extremity or neck pain. She is found to have cervical disk protrusion which is likely chronic in nature. She has no focal neurologic deficit referable to the cervical disk disease. She has no localized pain either at this point. No neurosurgical intervention is indicated nor recommended at this time. Soft cervical collar can be used for comfort care and a rigid collar is not recommended at this time. A course of physical therapy should be considered for safety precautions as well as fall precautions. The nature of her syncope is still not known at this time, and further medical evaluation per the medical team is recommended. The above was discussed with the patient at bedside. She would like to return to her assisted living facility whenever possible. She was advised to be careful and to take things easy to prevent another fall if possible. All questions were answered at bedside. The CT scan findings were discussed with the patient. BEBE CORREA M.D. DORCAS/[id number] MTDD
[2020-05-26] MEDS: ATORVASTATIN CA 80 MG TABLET (FP) PO SCH (21:21)
[2020-05-27] MEDS: HEPARIN NA (PORCINE) 5,000 UNITS/ML 1ML VIAL SQ SCH ×3 (06:19→21:54)
[2020-05-27 08:10] LABS: BASO % 0.8 % (0-2.0); EOS % 1.1 % (0-4.5); HEMATOCRIT 36.1 % (32.4-45.2); HEMOGLOBIN 11.7 GM/dL (10.7-15.3); LYMPH % 40.1 % (8-40); MCH 28.2 pg (25.7-33.7); MCHC 32.5 g/dl (32.0-36.0); MEAN CELL VOLUME 86.8 fl (80-96); MEAN PLT VOLUME 7.4 fl (7.5-11.1); MONO % 8.5 % (3.8-10.2); NEUT % 49.5 % (42.8-82.8); PLATELET COUNT 283 K/MM3 (134-434); RBC 4.16 M/mm3 (3.60-5.2); RDW 15.4 % (11.6-15.6); WHITE BLOOD COUNT 6.8 K/mm3 (4.0-10.0)
[2020-05-27 08:41] LABS: ALBUMIN 3.1 g/dl (3.4-5.0); BILIRUBIN,TOTAL 0.4 mg/dL (0.2-1); BLOOD UREA NITROGEN 20.1 mg/dL (7-18); CALCIUM 8.8 mg/dL (8.5-10.1); MAGNESIUM 2.3 mg/dL (1.8-2.4); POTASSIUM 4.5 mmol/L (3.5-5.1); TOT PROT 6.6 g/dl (6.4-8.2)
--- NOTE | 2020-05-27 08:42 | PN ---
Progress Note, Physician Chief Complaint: doing well, nad, no pain, no fever, no chills, no nausea no vomiting, no palpiations, no cp no sob, - Current Medication List Current Medications: Active Medications Acetaminophen (Tylenol -) 325 mg PO Q4H PRN PRN Reason: MODERATE PAIN 4-6 Aspirin (Asa -) 81 mg PO DAILY [facility] Last Admin: 05/26/20 10:03 Dose: 81 mg Documented by: Atorvastatin Calcium (Lipitor -) 80 mg PO HS [facility] Last Admin: 05/26/20 21:21 Dose: 80 mg Documented by: Heparin Sodium (Porcine) (Heparin -) 5,000 unit SQ TID [facility] Last Admin: 05/27/20 06:19 Dose: 5,000 unit Documented by: Sodium Chloride (1/2 Normal Saline) 1,000 mls @ 75 mls/hr IV ASDIR [facility] Last Admin: 05/26/20 20:10 Dose: 75 mls/hr Documented by: Metoprolol Succinate (Toprol Xl -) 25 mg PO DAILY [facility] Last Admin: 05/26/20 20:10 Dose: 25 mg Documented by: - Objective Vital Signs: Vital Signs Temperature 98.4 F 05/27/20 06:00 Pulse Rate 72 05/27/20 08:01 Respiratory Rate 18 05/27/20 08:01 Blood Pressure 134/85 05/27/20 08:01 O2 Sat by Pulse Oximetry (%) 96 05/27/20 08:01 Constitutional: Yes: Well Nourished, No Distress, Calm Eyes: Yes: Conjunctiva Clear, EOM Intact HENT: Yes: Atraumatic, Normocephalic Neck: Yes: Supple, Trachea Midline Cardiovascular: Yes: Regular Rate and Rhythm Respiratory: Yes: Regular, CTA Bilaterally Gastrointestinal: Yes: Normal Bowel Sounds, Soft Extremities: Yes: WNL Neurological: Yes: WNL Labs: CBC, BMP 05/27/20 07:40 05/27/20 07:40 INR, PTT INR 0.97 (0.83-1.09) 05/25/20 18:45 Impression/Plan Impression/Plan: Problems (1) Cervical disc herniation Assessment/Plan: C spine CT- reversal of lordosis, spondylosis and DDD multilevel, small central disc protrusion C3-4 to C4-5, partially calcified for soft collar seen by neurosurgery physical therapy (2) Systolic CHF Assessment/Plan: echo shows severe global LV systolic dysfunction LVEF 30-35%. patient denies any shortness of breath or chest pain. bro getting records from the [facility], and norm recommend low dose metoprolol or toprol 25mg xl, pt had 13 beats of vtac, was asymtomatic, and bp was 105, sbp, and now NSR, at 78 bpm, will ocntinue toprol at current dose, will incrase of needed, cerdioolgy fu, no diuretics recommended as no signs of volume overload. she is on room air and stable. jermain/arb recommended once renal function improves (3) Fall Assessment/Plan: for PT eval maintain safety precautions fall precautions Code(s): W19.XXXA - UNSPECIFIED FALL, INITIAL ENCOUNTER (4) JHONATAN (acute kidney injury) Assessment/Plan: avoid nephrotoxins, and will continue monitoring, Code(s): N17.9 - ACUTE KIDNEY FAILURE, UNSPECIFIED (5) Syncope Assessment/Plan: monitor on tele for any more arrhythmias. monitor vitals labs, orthostatics head ct negative for acute pathology Code(s): R55 - SYNCOPE AND COLLAPSE (6) Weakness PT (7) DVT prophylaxis Assessment/Plan: heparin tid Code(s): Z29.9 - ENCOUNTER FOR PROPHYLACTIC MEASURES, UNSPECIFIED Visit type - Emergency Visit Emergency Visit: No - New Patient This patient is new to me today: Yes Date on this admission: 05/27/20 - Critical Care Critical Care patient: No - Discharge Referral Referred to [facility] Med P.C.: No - Medication Review Med list reviewed for High Risk Meds patients 65 and older: Yes
[2020-05-27] MEDS: ASPIRIN 81 MG CHEWABLE TABLETS PO SCH (09:21)
[2020-05-27] MEDS: metoPROLOL SUCCINATE 25 MG TAB.SR.24H (FP) PO SCH (09:21)
--- NOTE | 2020-05-27 09:52 | PN ---
Progress Note (short form) - Note Progress Note: NEUROSURGERY In ICU h/o dementia, HTN, HLD, and Schizoaffective disorder here after unwitnessed fall. Denies any prior light headedness, nausea, vomiting, changes in vision, chest pain, or SOB. Amnestic of the fall itself. Denies weakness, numbness, bowel/urinary incontinence. Cardiology input noted. No new complaint. Wants to go home. PE: AF, VSS 134/85 General- unremarkable, speech fkuent, memory poor; Neck- with no tenderness, slight kyphosis CN- intact; Motor- at least 4/5 B UE/LE; Sensation- intact LT; DTR- hyporeflexic Head CT- no acute fx or bleed, mild atrophy C spine CT- reversal of lordosis, spondylosis and DDD multilevel, small central disc protrusion C3-4 > C4-5, partially calcified Cervical DDD with spondylosis and kyphosis Doubt acute herniation given asymptomatic nature of the dz No neurosurgical intervention indicated PT for mobility and safety Soft collar for comfort No neurosurgical intervention indicated
[2020-05-27 14:52] LABS: URINE APPEARANCE CLEAR; URINE BILIRUBIN NEGATIVE (NEGATIVE); URINE COLOR YELLOW; URINE GLUCOSE (UA) 2+ (NEGATIVE); URINE KETONE NEGATIVE (NEGATIVE); URINE LEUK ESTERASE NEGATIVE (NEGATIVE); URINE NITRITE NEGATIVE (NEGATIVE); URINE PROTEIN TRACE (NEGATIVE); URINE UROBILINOGEN 0.2 mg/dL (0.2-1.0)
--- NOTE | 2020-05-27 15:26 | PN ---
Progress Note, Physician History of Present Illness: Pt seen and examined at bedside. She appears comfortable. - Current Medication List Current Medications: Active Medications Acetaminophen (Tylenol -) 325 mg PO Q4H PRN PRN Reason: MODERATE PAIN 4-6 Aspirin (Asa -) 81 mg PO DAILY [facility] Last Admin: 05/27/20 09:21 Dose: 81 mg Documented by: Atorvastatin Calcium (Lipitor -) 80 mg PO HS [facility] Last Admin: 05/26/20 21:21 Dose: 80 mg Documented by: Heparin Sodium (Porcine) (Heparin -) 5,000 unit SQ TID [facility] Last Admin: 05/27/20 13:50 Dose: 5,000 unit Documented by: Sodium Chloride (1/2 Normal Saline) 1,000 mls @ 40 mls/hr IV ASDIR [facility] Metoprolol Succinate (Toprol Xl -) 25 mg PO DAILY [facility] Last Admin: 05/27/20 09:21 Dose: 25 mg Documented by: - Objective Vital Signs: Vital Signs Temperature 98 F 05/27/20 14:00 Pulse Rate 80 05/27/20 14:00 Respiratory Rate 18 05/27/20 14:00 Blood Pressure 118/78 05/27/20 14:00 O2 Sat by Pulse Oximetry (%) 98 05/27/20 14:00 Constitutional: Yes: Calm Eyes: Yes: Conjunctiva Clear HENT: Yes: Atraumatic Neck: Yes: Supple Cardiovascular: Yes: S1, S2 Respiratory: Yes: CTA Bilaterally Gastrointestinal: Yes: Normal Bowel Sounds, Soft Genitourinary: Yes: WNL Musculoskeletal: Yes: WNL Edema: No Integumentary: Yes: WNL Neurological: Yes: Confusion Labs: CBC, BMP 05/27/20 07:40 05/27/20 07:40 INR, PTT INR 0.97 (0.83-1.09) 05/25/20 18:45 Problem List - Problems (1) JHONATAN (acute kidney injury) Code(s): N17.9 - ACUTE KIDNEY FAILURE, UNSPECIFIED (2) Fall Code(s): W19.XXXA - UNSPECIFIED FALL, INITIAL ENCOUNTER Assessment/Plan Current Medications Generic Name Dose Route Start Last Admin Trade Name Freq PRN Reason Stop Dose Admin Acetaminophen 325 mg 05/25/20 23:50 Tylenol - PO Q4H PRN MODERATE PAIN 4-6 Aspirin 81 mg 05/26/20 10:00 05/27/20 09:21 Asa - PO 81 mg DAILY [facility] Administration Atorvastatin Calcium 80 mg 05/26/20 22:00 05/26/20 21:21 Lipitor - PO 80 mg HS [facility] Administration Heparin Sodium (Porcine) 5,000 unit 05/25/20 23:45 05/27/20 13:50 Heparin - SQ 5,000 unit TID [facility] Administration Sodium Chloride 1,000 mls @ 40 mls/hr 05/27/20 15:23 1/2 Normal Saline IV ASDIR [facility] Metoprolol Succinate 25 mg 05/26/20 19:00 05/27/20 09:21 Toprol Xl - PO 25 mg DAILY [facility] Administration Impression 1. jhonatan 2. s/p fall 3. htn 4. hld 5. alzheimers dementia Plan - decrease rate of fluids - repeat labs in am - renal function improved - monitor bp
[2020-05-27] MEDS: SODIUM CHLORIDE 0.45% 1,000 ML IV SCH (16:38)
[2020-05-27] MEDS: ATORVASTATIN CA 80 MG TABLET (FP) PO SCH (21:55)
[2020-05-28] MEDS: HEPARIN NA (PORCINE) 5,000 UNITS/ML 1ML VIAL SQ SCH ×3 (06:22→21:01)
--- NOTE | 2020-05-28 08:55 | PN ---
Progress Note (short form) - Note Progress Note: NEUROSURGERY In ICU Denies neck pain, UE/LE weakness, numbness, bowel/urinary incontinence PE: AF, VSS In good spirit General- unremarkable, speech fkuent, memory poor; Neck- with no tenderness, slight kyphosis CN- intact; Motor- at least 4/5 B UE/LE; Sensation- intact LT; DTR- hyporeflexic Head CT- no acute fx or bleed, mild atrophy C spine CT- reversal of lordosis, spondylosis and DDD multilevel, small central disc protrusion C3-4 > C4-5, partially calcified Cervical DDD with spondylosis and kyphosis Doubt acute herniation given asymptomatic nature of the dz PT for mobility and safety Soft collar for comfort, but may remove as pt is asymptomatic No neurosurgical intervention indicated
[2020-05-28] MEDS: ASPIRIN 81 MG CHEWABLE TABLETS PO SCH (09:28)
[2020-05-28] MEDS: metoPROLOL SUCCINATE 25 MG TAB.SR.24H (FP) PO SCH (09:28)
[2020-05-28 10:02] LABS: BASO % 0.9 % (0-2.0); EOS % 1.6 % (0-4.5); HEMATOCRIT 34.3 % (32.4-45.2); HEMOGLOBIN 11.2 GM/dL (10.7-15.3); LYMPH % 34.6 % (8-40); MCH 28.7 pg (25.7-33.7); MCHC 32.8 g/dl (32.0-36.0); MEAN CELL VOLUME 87.5 fl (80-96); MONO % 5.3 % (3.8-10.2); NEUT % 57.6 % (42.8-82.8); PLATELET COUNT 313 K/MM3 (134-434); RBC 3.92 M/mm3 (3.60-5.2); RDW 15.3 % (11.6-15.6); WHITE BLOOD COUNT 9.2 K/mm3 (4.0-10.0)
[2020-05-28 10:28] LABS: ALBUMIN 2.9 g/dl (3.4-5.0); BILIRUBIN,TOTAL 0.5 mg/dL (0.2-1); BLOOD UREA NITROGEN 23.2 mg/dL (7-18); CALCIUM 8.7 mg/dL (8.5-10.1); CREATININE 1.1 mg/dL (0.55-1.3); MAGNESIUM 2.2 mg/dL (1.8-2.4); POTASSIUM 4.8 mmol/L (3.5-5.1); TOT PROT 6.3 g/dl (6.4-8.2)
--- NOTE | 2020-05-28 16:03 | PN ---
Progress Note, Physician History of Present Illness: Pt appear comfortable. She has no complaints. - Current Medication List Current Medications: Active Medications Acetaminophen (Tylenol -) 325 mg PO Q4H PRN PRN Reason: MODERATE PAIN 4-6 Aspirin (Asa -) 81 mg PO DAILY [facility] Last Admin: 05/28/20 09:28 Dose: 81 mg Documented by: Atorvastatin Calcium (Lipitor -) 80 mg PO HS [facility] Last Admin: 05/27/20 21:55 Dose: 80 mg Documented by: Heparin Sodium (Porcine) (Heparin -) 5,000 unit SQ TID [facility] Last Admin: 05/28/20 13:03 Dose: 5,000 unit Documented by: Sodium Chloride (1/2 Normal Saline) 1,000 mls @ 40 mls/hr IV ASDIR [facility] Last Admin: 05/27/20 16:38 Dose: 40 mls/hr Documented by: Metoprolol Succinate (Toprol Xl -) 25 mg PO DAILY [facility] Last Admin: 05/28/20 09:28 Dose: 25 mg Documented by: - Objective Vital Signs: Vital Signs Temperature 98.4 F 05/28/20 14:00 Pulse Rate 71 05/28/20 14:00 Respiratory Rate 19 05/28/20 14:00 Blood Pressure 136/92 05/28/20 14:00 O2 Sat by Pulse Oximetry (%) 94 L 05/28/20 14:00 Constitutional: Yes: Calm Eyes: Yes: Conjunctiva Clear HENT: Yes: Atraumatic Cardiovascular: Yes: S1, S2 Respiratory: Yes: CTA Bilaterally Gastrointestinal: Yes: Soft Genitourinary: Yes: WNL Musculoskeletal: Yes: WNL Edema: No Integumentary: Yes: WNL Neurological: Yes: Confusion Psychiatric: Yes: Oriented Labs: CBC, BMP 05/28/20 09:28 05/28/20 09:28 INR, PTT INR 0.97 (0.83-1.09) 05/25/20 18:45 Problem List - Problems (1) JHONATAN (acute kidney injury) Code(s): N17.9 - ACUTE KIDNEY FAILURE, UNSPECIFIED (2) Fall Code(s): W19.XXXA - UNSPECIFIED FALL, INITIAL ENCOUNTER Assessment/Plan Current Medications Generic Name Dose Route Start Last Admin Trade Name Freq PRN Reason Stop Dose Admin Acetaminophen 325 mg 05/25/20 23:50 Tylenol - PO Q4H PRN MODERATE PAIN 4-6 Aspirin 81 mg 05/26/20 10:00 05/28/20 09:28 Asa - PO 81 mg DAILY [facility] Administration Atorvastatin Calcium 80 mg 05/26/20 22:00 05/27/20 21:55 Lipitor - PO 80 mg HS [facility] Administration Heparin Sodium (Porcine) 5,000 unit 05/25/20 23:45 05/28/20 13:03 Heparin - SQ 5,000 unit TID [facility] Administration Sodium Chloride 1,000 mls @ 40 mls/hr 05/27/20 15:23 05/27/20 16:38 1/2 Normal Saline IV 40 mls/hr ASDIR [facility] Administration Metoprolol Succinate 25 mg 05/26/20 19:00 05/28/20 09:28 Toprol Xl - PO 25 mg DAILY [facility] Administration Impression 1. jhonatan 2. s/p fall 3. htn 4. hld 5. alzheimers dementia Plan - renal functions stable - cont fluids - monitor bp - pt tolerating diet - repeat labs in am
--- NOTE | 2020-05-28 16:46 | PN ---
Progress Note, Physician History of Present Illness: Seen and examined at bedside. Telemetry reviewed. A few runs of NSVT overnight and this morning. She denies nausea vomiting fever chills chest pain SOB palpitations lightheadedness or dizziness. Endorses constipation and states she hasnt had a BM in "many days" and cant remember the last time she has gone but per chart she had a BM yesterday at 6pm. - Current Medication List Current Medications: Active Medications Acetaminophen (Tylenol -) 325 mg PO Q4H PRN PRN Reason: MODERATE PAIN 4-6 Aspirin (Asa -) 81 mg PO DAILY [facility] Last Admin: 05/28/20 09:28 Dose: 81 mg Documented by: Atorvastatin Calcium (Lipitor -) 80 mg PO HS [facility] Last Admin: 05/27/20 21:55 Dose: 80 mg Documented by: Heparin Sodium (Porcine) (Heparin -) 5,000 unit SQ TID [facility] Last Admin: 05/28/20 13:03 Dose: 5,000 unit Documented by: Sodium Chloride (1/2 Normal Saline) 1,000 mls @ 40 mls/hr IV ASDIR [facility] Last Admin: 05/27/20 16:38 Dose: 40 mls/hr Documented by: Metoprolol Succinate (Toprol Xl -) 25 mg PO DAILY [facility] Last Admin: 05/28/20 09:28 Dose: 25 mg Documented by: - Objective Vital Signs: Vital Signs Temperature 98.4 F 05/28/20 14:00 Pulse Rate 71 05/28/20 14:00 Respiratory Rate 19 05/28/20 14:00 Blood Pressure 136/92 05/28/20 14:00 O2 Sat by Pulse Oximetry (%) 94 L 05/28/20 14:00 Constitutional: Yes: No Distress, Calm Eyes: Yes: Conjunctiva Clear Neck: Yes: Supple Cardiovascular: Yes: Regular Rate and Rhythm Respiratory: Yes: CTA Bilaterally Gastrointestinal: Yes: WNL, Normal Bowel Sounds, Soft Genitourinary: No: CVA Tenderness - Left, CVA Tenderness - Right Extremities: Yes: WNL Edema: Yes Edema: LLE: Trace, RLE: Trace Psychiatric: Yes: Alert, Oriented (x3. Needs frequent redirection. starts talking about random topics.) Labs: CBC, BMP 05/28/20 09:28 05/28/20 09:28 INR, PTT INR 0.97 (0.83-1.09) 05/25/20 18:45 Impression/Plan Impression/Plan: Cervical disc herniation C spine CT- reversal of lordosis, spondylosis and DJD multilevel, small central disc protrusion C3-4 to C4-5, partially calcified-all likely chronic no need for soft collar per neurosurgery seen by neurosurgery-no acute interventions physical therapy Systolic CHF echo shows severe global LV systolic dysfunction LVEF 30-35%. patient denies any shortness of breath or chest pain. brother getting records from the the medical center, and will follow nup with cardiology continue metoprolol per cardiology had some episodes of NSVT on telemetry no diuretics recommended as no signs of volume overload. she is on room air and stable. jermain/arb recommended once renal function improves-low dose lisinopril 2.5mg po daily once cleared by nephrology NSVT continue beta keon metoprolol XL 25mg po daily increase to 50mg po daily tomorrow if not rate controlled. BP may allow for it. continue to trend BP and HR. Would like to avoid orthostatic hypotension though. continue telemetry monitoring f/u cardiology- will reach out thyroid function s/p mechanical Fall vs syncope-patient unreliable historian PT eval maintain safety precautions fall precautions patient is having runs of NSVT JHONATAN nephrology consult noted and appreciated improved/resolved-IVF per nephrology DVT prophylaxis heparin subcu TID Visit type - Emergency Visit Emergency Visit: Yes ED Registration Date: 05/25/20 Care time: The patient presented to the Emergency Department on the above date and was hospitalized for further evaluation of their emergent condition. - New Patient This patient is new to me today: Yes Date on this admission: 05/28/20 - Critical Care Critical Care patient: No - Medication Review Med list reviewed for High Risk Meds patients 65 and older: Yes
--- NOTE | 2020-05-28 17:36 | EKG ---
Test Reason : Blood Pressure : / mmHG Vent. Rate : 101 BPM Atrial Rate : 101 BPM P-R Int : 150 ms QRS Dur : 090 ms QT Int : 374 ms P-R-T Axes : 069 020 063 degrees QTc Int : 484 ms SINUS TACHYCARDIA WITH OCCASIONAL PREMATURE VENTRICULAR COMPLEXES POSSIBLE LEFT ATRIAL ENLARGEMENT NONSPECIFIC T WAVE ABNORMALITY ABNORMAL ECG WHEN COMPARED WITH ECG OF 25-MAY-2020 20:59, PREMATURE VENTRICULAR COMPLEXES ARE NOW PRESENT Confirmed by MD Liseth, Kristian ([id number]) on 05/28/2020 5:36:07 PM Referred By: DOMINIK PARSONS DR Confirmed By:Kristian Childers MD
[2020-05-28] MEDS: SODIUM CHLORIDE 0.45% 1,000 ML IV SCH (19:38)
[2020-05-28] MEDS: ATORVASTATIN CA 80 MG TABLET (FP) PO SCH (21:01)
[2020-05-29] MEDS: HEPARIN NA (PORCINE) 5,000 UNITS/ML 1ML VIAL SQ SCH ×3 (06:17→22:24)
[2020-05-29] MEDS: SODIUM CHLORIDE 0.45% 1,000 ML IV SCH (06:18)
[2020-05-29 07:03] LABS: BASO % 1.1 % (0-2.0); EOS % 2.6 % (0-4.5); HEMOGLOBIN 11.5 GM/dL (10.7-15.3); LYMPH % 43.4 % (8-40); MCH 28.6 pg (25.7-33.7); MCHC 32.9 g/dl (32.0-36.0); MEAN CELL VOLUME 86.8 fl (80-96); MEAN PLT VOLUME 7.9 fl (7.5-11.1); NEUT % 47.9 % (42.8-82.8); PLATELET COUNT 305 K/MM3 (134-434); RBC 4.03 M/mm3 (3.60-5.2); RDW 15.1 % (11.6-15.6); WHITE BLOOD COUNT 8.3 K/mm3 (4.0-10.0)
[2020-05-29 07:45] LABS: ALBUMIN 2.9 g/dl (3.4-5.0); BILIRUBIN,TOTAL 0.3 mg/dL (0.2-1); BLOOD UREA NITROGEN 27.2 mg/dL (7-18); CALCIUM 9.1 mg/dL (8.5-10.1); MAGNESIUM 2.3 mg/dL (1.8-2.4); POTASSIUM 4.6 mmol/L (3.5-5.1); TOT PROT 6.3 g/dl (6.4-8.2)
[2020-05-29] MEDS: ASPIRIN 81 MG CHEWABLE TABLETS PO SCH (09:42)
[2020-05-29] MEDS: metoPROLOL SUCCINATE 25 MG TAB.SR.24H (FP) PO SCH (09:42)
--- NOTE | 2020-05-29 12:41 | PN ---
Progress Note (short form) - Note Progress Note: NEUROSURGERY In ICU No new complaint. PE: Tmax 98.4, AF, VSS General- unremarkable, speech fkuent, memory poor; Neck- with no tenderness, slight kyphosis CN- intact; Motor- at least 4/5 B UE/LE; Sensation- intact LT; DTR- hyporeflexic Cervical DDD with spondylosis and kyphosis Doubt acute herniation given asymptomatic nature of the dz PT for mobility and safety Soft collar for comfort, but can remove as pt is asymptomatic No neurosurgical intervention indicated
[2020-05-29] MEDS ORDERED: metoPROLOL SUCCINATE 25 MG TAB.SR.24H (FP) PO ONE (13:14)
--- NOTE | 2020-05-29 15:04 | PN ---
Physical Exam: SUBJECTIVE: Patient seen and examined. denies chest pain or discomfort. OBJECTIVE: Patient is a 75 year old female (resident of [facility]). Patient was admitted on 05/25/2020 after she fell at her facility. Per admitting report, patient fell and was unable to get back up on her own. No reported prodormal symptoms. She was found to have JHONATAN (unknown baseline). Routine echo done today low EF and cardiology was consulted. C spine shows c3-c4 disc herniation. She was evaluated by neurosurgery and a soft collar recommended. covid status: negative tele monitor bp 151/121, several runs of nvst overnight and this a.m. Vital Signs Period Temp Pulse Resp BP Sys/Ontiveros Pulse Ox Last 24 Hr 98.1 F-98.4 F 63-91 19-20 109-157/64-101 97-99 GENERAL: The patient is awake, alert, forgetful HEAD: Normal with no signs of trauma. EYES: PERRL, extraocular movements intact, sclera anicteric, conjunctiva clear. No ptosis. ENT: Ears normal, nares patent, oropharynx clear without exudates, moist mucous membranes. NECK: Trachea midline, full range of motion, supple. LUNGS: Breath sounds equal, clear to auscultation bilaterally, no wheezes, no crackles, no accessory muscle use. HEART: Regular rate and rhythm ABDOMEN: Soft, nontender, nondistended, normoactive bowel sounds EXTREMITIES: no edema. NEUROLOGICAL: Normal speech, gait not observed. PSYCH: Normal mood, normal affect. SKIN: Warm, dry, normal turgor, no rashes or lesions noted Laboratory Results - last 24 hr 05/29/20 05/29/20 06:14 06:14 WBC 8.3 RBC 4.03 Hgb 11.5 Hct 35.0 MCV 86.8 MCH 28.6 MCHC 32.9 RDW 15.1 Plt Count 305 MPV 7.9 Absolute Neuts (auto) 4.0 Neutrophils % 47.9 Lymphocytes % 43.4 H D Monocytes % 5.0 Eosinophils % 2.6 Basophils % 1.1 Nucleated RBC % 0 Sodium 142 Potassium 4.6 Chloride 108 H Carbon Dioxide 26 Anion Gap 7 L BUN 27.2 H Creatinine 1.0 Est GFR (CKD-EPI)AfAm 63.38 Est GFR (CKD-EPI)NonAf 54.68 Random Glucose 75 Calcium 9.1 Magnesium 2.3 Total Bilirubin 0.3 AST 39 H ALT 26 Alkaline Phosphatase 84 Total Protein 6.3 L Albumin 2.9 L TSH 1.26 Free T4 1.16 Active Medications Generic Name Dose Route Start Last Admin Trade Name Freq PRN Reason Stop Dose Admin Acetaminophen 325 mg 05/25/20 23:50 Tylenol - PO Q4H PRN MODERATE PAIN 4-6 Aspirin 81 mg 05/26/20 10:00 05/29/20 09:42 Asa - PO 81 mg DAILY [facility] Administration Atorvastatin Calcium 80 mg 05/26/20 22:00 05/28/20 21:01 Lipitor - PO 80 mg HS [facility] Administration Heparin Sodium (Porcine) 5,000 unit 05/25/20 23:45 05/29/20 13:44 Heparin - SQ 5,000 unit TID [facility] Administration Sodium Chloride 1,000 mls @ 40 mls/hr 05/27/20 15:23 05/29/20 06:18 1/2 Normal Saline IV 40 mls/hr ASDIR [facility] Administration Metoprolol Succinate 50 mg 05/30/20 10:00 Toprol Xl - PO DAILY [facility] ASSESSMENT/PLAN: Problem List - Problems (1) Cervical disc herniation Assessment/Plan: C spine CT- reversal of lordosis, spondylosis and DDD multilevel, small central disc protrusion C3-4 to C4-5, partially calcified for soft collar seen by neurosurgery physical therapy Code(s): M50.20 - OTHER CERVICAL DISC DISPLACEMENT, UNSP CERVICAL REGION (2) Systolic CHF Assessment/Plan: echo shows severe global LV systolic dysfunction LVEF 30-35%. patient denies any shortness of breath or chest pain. no echos done at [facility] to compare. Patient with recent admission to [facility] as per her brother, attempting to get records from her nursing facility. Seen by cardiology, recommend low dose metoprolol or toprol 25mg. will increase to 50mg today. renal function stable, add lisinopril 2.5mg no diuretics recommended as no signs of volume overload. she is on room air and stable. Code(s): I50.20 - UNSPECIFIED SYSTOLIC (CONGESTIVE) HEART FAILURE (3) Fall Assessment/Plan: for PT eval maintain safety precautions fall precautions Code(s): W19.XXXA - UNSPECIFIED FALL, INITIAL ENCOUNTER (4) JHONATAN (acute kidney injury) Assessment/Plan: renal ultrasound shows moderately atrophic kidneys with no evidence of hydronephrosis or acute path. unknown baseline creatinine Code(s): N17.9 - ACUTE KIDNEY FAILURE, UNSPECIFIED (5) Syncope Assessment/Plan: monitor on tele for any arrhythmias. monitor vitals labs, orthostatics head ct negative for acute pathology Code(s): R55 - SYNCOPE AND COLLAPSE (6) Weakness Code(s): R53.1 - WEAKNESS (7) DVT prophylaxis Assessment/Plan: heparin tid Code(s): Z29.9 - ENCOUNTER FOR PROPHYLACTIC MEASURES, UNSPECIFIED Visit type - Emergency Visit Emergency Visit: Yes ED Registration Date: 05/25/20 Care time: The patient presented to the Emergency Department on the above date a nd was hospitalized for further evaluation of their emergent condition. - New Patient This patient is new to me today: No - Critical Care Critical Care patient: No - Discharge Referral Referred to [facility] Med P.C.: No - Medication Review Med list reviewed for High Risk Meds patients 65 and older: Yes
--- NOTE | 2020-05-29 18:39 | PN ---
Progress Note, Physician History of Present Illness: Pt seen and examined at bedside. She is awake and appears comfortable. - Current Medication List Current Medications: Active Medications Acetaminophen (Tylenol -) 325 mg PO Q4H PRN PRN Reason: MODERATE PAIN 4-6 Aspirin (Asa -) 81 mg PO DAILY [facility] Last Admin: 05/29/20 09:42 Dose: 81 mg Documented by: Atorvastatin Calcium (Lipitor -) 80 mg PO HS [facility] Last Admin: 05/28/20 21:01 Dose: 80 mg Documented by: Heparin Sodium (Porcine) (Heparin -) 5,000 unit SQ TID [facility] Last Admin: 05/29/20 13:44 Dose: 5,000 unit Documented by: Sodium Chloride (1/2 Normal Saline) 1,000 mls @ 40 mls/hr IV ASDIR [facility] Last Admin: 05/29/20 06:18 Dose: 40 mls/hr Documented by: Lisinopril (Prinivil) 5 mg PO DAILY [facility] Metoprolol Succinate (Toprol Xl -) 50 mg PO DAILY [facility] - Objective Vital Signs: Vital Signs Temperature 98.6 F 05/29/20 17:33 Pulse Rate 77 05/29/20 17:33 Respiratory Rate 20 05/29/20 17:33 Blood Pressure 111/75 05/29/20 17:33 O2 Sat by Pulse Oximetry (%) 99 05/29/20 09:00 Constitutional: Yes: Calm Eyes: Yes: Conjunctiva Clear HENT: Yes: Atraumatic Neck: Yes: Supple Cardiovascular: Yes: S1, S2 Respiratory: Yes: CTA Bilaterally Gastrointestinal: Yes: Soft Genitourinary: Yes: WNL Musculoskeletal: Yes: WNL Edema: No Neurological: Yes: Oriented Psychiatric: Yes: Oriented Labs: CBC, BMP 05/29/20 06:14 05/29/20 06:14 INR, PTT INR 0.97 (0.83-1.09) 05/25/20 18:45 Problem List - Problems (1) JHONATAN (acute kidney injury) Code(s): N17.9 - ACUTE KIDNEY FAILURE, UNSPECIFIED (2) Fall Code(s): W19.XXXA - UNSPECIFIED FALL, INITIAL ENCOUNTER Assessment/Plan Current Medications Generic Name Dose Route Start Last Admin Trade Name Freq PRN Reason Stop Dose Admin Acetaminophen 325 mg 05/25/20 23:50 Tylenol - PO Q4H PRN MODERATE PAIN 4-6 Aspirin 81 mg 05/26/20 10:00 05/29/20 09:42 Asa - PO 81 mg DAILY [facility] Administration Atorvastatin Calcium 80 mg 05/26/20 22:00 05/28/20 21:01 Lipitor - PO 80 mg HS [facility] Administration Heparin Sodium (Porcine) 5,000 unit 05/25/20 23:45 05/29/20 13:44 Heparin - SQ 5,000 unit TID [facility] Administration Sodium Chloride 1,000 mls @ 40 mls/hr 05/27/20 15:23 05/29/20 06:18 1/2 Normal Saline IV 40 mls/hr ASDIR [facility] Administration Lisinopril 5 mg 05/30/20 10:00 Prinivil PO DAILY [facility] Metoprolol Succinate 50 mg 05/30/20 10:00 Toprol Xl - PO DAILY [facility] Impression 1. jhonatan 2. s/p fall 3. htn 4. hld 5. alzheimers dementia Plan - renal function stable - can d/ fluids - avoid nsaids - monitor bp - pt tolerating diet
[2020-05-29] MEDS: ATORVASTATIN CA 80 MG TABLET (FP) PO SCH (22:25)
[2020-05-30] MEDS: HEPARIN NA (PORCINE) 5,000 UNITS/ML 1ML VIAL SQ SCH ×3 (06:18→22:10)
--- NOTE | 2020-05-30 08:19 | PN ---
Progress Note, Physician Chief Complaint: Seen and examined in chair in ICU (tele border). No complaints offered. Episodes of NSVT yesterday. None seen overnight. COVID PCR neg History of Present Illness: 75 year old female (resident of [facility]). Patient was admitted on 05/25/2020 after she fell at her facility. Per admitting report, patient fell and was unable to get back up on her own. No reported prodormal symptoms. She was found to have JHONATAN (unknown baseline). Routine echo done today low EF and cardiology was consulted. C spine shows c3-c4 disc herniation. She was evaluated by neurosurgery and a soft collar recommended. - Current Medication List Current Medications: Active Medications Acetaminophen (Tylenol -) 325 mg PO Q4H PRN PRN Reason: MODERATE PAIN 4-6 Aspirin (Asa -) 81 mg PO DAILY [facility] Last Admin: 05/29/20 09:42 Dose: 81 mg Documented by: Atorvastatin Calcium (Lipitor -) 80 mg PO HS [facility] Last Admin: 05/29/20 22:25 Dose: 80 mg Documented by: Heparin Sodium (Porcine) (Heparin -) 5,000 unit SQ TID [facility] Last Admin: 05/30/20 06:18 Dose: 5,000 unit Documented by: Lisinopril (Prinivil) 5 mg PO DAILY [facility] Metoprolol Succinate (Toprol Xl -) 50 mg PO DAILY [facility] - Objective Vital Signs: Vital Signs Temperature 98.3 F 05/30/20 06:30 Pulse Rate 97 H 05/30/20 06:30 Respiratory Rate 18 05/30/20 06:30 Blood Pressure 143/81 05/30/20 06:30 O2 Sat by Pulse Oximetry (%) 96 05/30/20 06:30 Constitutional: Yes: Well Nourished, No Distress, Calm, Other (forgetful) Eyes: Yes: WNL, Conjunctiva Clear HENT: Yes: WNL, Atraumatic, Normocephalic Neck: Yes: Supple, Trachea Midline, Tenderness (cervical collar in plam) Cardiovascular: Yes: WNL, Regular Rate and Rhythm Respiratory: Yes: WNL, Regular, CTA Bilaterally Gastrointestinal: Yes: WNL, Normal Bowel Sounds, Soft ...Rectal Exam: Yes: Deferred Genitourinary: Yes: WNL Breast(s): Yes: WNL Musculoskeletal: Yes: WNL Extremities: Yes: WNL Edema: No Peripheral Pulses WNL: Yes Peripheral Pulses: Left Radial: 2+, Right Radial: 2+, Left Doralis Pedis: 2+, Right Dorsalis Pedis: 2+, Left Femoral: 2+, Right Femoral: 2+ Integumentary: Yes: WNL Neurological: Yes: Alert, Other (forgetful) ...Motor Strength: WNL Psychiatric: Yes: Alert, Oriented Labs: CBC, BMP 05/29/20 06:14 05/29/20 06:14 INR, PTT INR 0.97 (0.83-1.09) 05/25/20 18:45 Problem List - Problems (1) COVID-19 ruled out Assessment/Plan: negative pcr Code(s): Z03.818 - ENCNTR FOR OBS FOR SUSP EXPSR TO OTH BIOLG AGENTS RULED OUT (2) Prophylactic measure Code(s): Z29.9 - ENCOUNTER FOR PROPHYLACTIC MEASURES, UNSPECIFIED (3) JHONATAN (acute kidney injury) Assessment/Plan: Cr now 1.0 avoid nephrotoxic agents appreciate renal consultation Code(s): N17.9 - ACUTE KIDNEY FAILURE, UNSPECIFIED (4) Cervical disc herniation Assessment/Plan: seen by dr Tinoco soft collar in place PT for mobility and safety No neurosurgical intervention indicated Followup outpatient PRN increasing neck pain or UE symptoms Code(s): M50.20 - OTHER CERVICAL DISC DISPLACEMENT, UNSP CERVICAL REGION (5) Fall Assessment/Plan: PT for mobility and safety No neurosurgical intervention indicated Followup outpatient PRN increasing neck pain or UE symptoms Code(s): W19.XXXA - UNSPECIFIED FALL, INITIAL ENCOUNTER (6) Syncope Assessment/Plan: monitor on tele for any arrhythmias. monitor vitals labs, orthostatics head ct negative for acute pathology Code(s): R55 - SYNCOPE AND COLLAPSE (7) Systolic CHF Assessment/Plan: TTE: severe global LV systolic dysfunction LVEF 30-35%. cardiology follwoing, appreciate c/w metoprolol c/w lisinopril 2.5mg no diuretics recommended as no signs of volume overload. Code(s): I50.20 - UNSPECIFIED SYSTOLIC (CONGESTIVE) HEART FAILURE (8) Weakness Assessment/Plan: c/w PT snf vc return back to assited living Code(s): R53.1 - WEAKNESS Visit type - Emergency Visit Emergency Visit: Yes ED Registration Date: 05/25/20 Care time: The patient presented to the Emergency Department on the above date and was hospitalized for further evaluation of their emergent condition. - New Patient This patient is new to me today: Yes Date on this admission: 05/30/20 - Critical Care Critical Care patient: No - Discharge Referral Referred to [facility] Med P.C[facility] No - Medication Review Med list reviewed for High Risk Meds patients 65 and older: Yes
[2020-05-30] MEDS: ASPIRIN 81 MG CHEWABLE TABLETS PO SCH (09:19)
[2020-05-30] MEDS: LISINOPRIL 5 MG TABLET (FP) PO SCH (09:19)
[2020-05-30] MEDS: metoPROLOL SUCCINATE 25 MG TAB.SR.24H (FP) PO SCH (09:19)
--- NOTE | 2020-05-30 14:54 | PN ---
Progress Note, Physician History of Present Illness: Pt seen and examined at bedside. No new events. She denies shortness of breath. - Current Medication List Current Medications: Active Medications Acetaminophen (Tylenol -) 325 mg PO Q4H PRN PRN Reason: MODERATE PAIN 4-6 Aspirin (Asa -) 81 mg PO DAILY [facility] Last Admin: 05/30/20 09:19 Dose: 81 mg Documented by: Atorvastatin Calcium (Lipitor -) 80 mg PO HS [facility] Last Admin: 05/29/20 22:25 Dose: 80 mg Documented by: Heparin Sodium (Porcine) (Heparin -) 5,000 unit SQ TID [facility] Last Admin: 05/30/20 06:18 Dose: 5,000 unit Documented by: Lisinopril (Prinivil) 5 mg PO DAILY [facility] Last Admin: 05/30/20 09:19 Dose: 5 mg Documented by: Metoprolol Succinate (Toprol Xl -) 50 mg PO DAILY [facility] Last Admin: 05/30/20 09:19 Dose: 50 mg Documented by: - Objective Vital Signs: Vital Signs Temperature 99.1 F 05/30/20 10:00 Pulse Rate 91 H 05/30/20 12:00 Respiratory Rate 25 H 05/30/20 12:00 Blood Pressure 111/88 05/30/20 12:00 O2 Sat by Pulse Oximetry (%) 94 L 05/30/20 12:00 Constitutional: Yes: Calm Eyes: Yes: Conjunctiva Clear HENT: Yes: Atraumatic Neck: Yes: Supple Cardiovascular: Yes: S1, S2 Respiratory: Yes: CTA Bilaterally Gastrointestinal: Yes: Soft Genitourinary: Yes: WNL Musculoskeletal: Yes: WNL Edema: No Neurological: Yes: Confusion Labs: CBC, BMP 05/29/20 06:14 05/29/20 06:14 INR, PTT INR 0.97 (0.83-1.09) 05/25/20 18:45 Problem List - Problems (1) JHONATAN (acute kidney injury) Code(s): N17.9 - ACUTE KIDNEY FAILURE, UNSPECIFIED (2) Fall Code(s): W19.XXXA - UNSPECIFIED FALL, INITIAL ENCOUNTER Assessment/Plan Current Medications Generic Name Dose Route Start Last Admin Trade Name Freq PRN Reason Stop Dose Admin Acetaminophen 325 mg 05/25/20 23:50 Tylenol - PO Q4H PRN MODERATE PAIN 4-6 Aspirin 81 mg 05/26/20 10:00 05/30/20 09:19 Asa - PO 81 mg DAILY [facility] Administration Atorvastatin Calcium 80 mg 05/26/20 22:00 05/29/20 22:25 Lipitor - PO 80 mg HS [facility] Administration Heparin Sodium (Porcine) 5,000 unit 05/25/20 23:45 05/30/20 06:18 Heparin - SQ 5,000 unit TID [facility] Administration Lisinopril 5 mg 05/30/20 10:00 05/30/20 09:19 Prinivil PO 5 mg DAILY [facility] Administration Metoprolol Succinate 50 mg 05/30/20 10:00 05/30/20 09:19 Toprol Xl - PO 50 mg DAILY [facility] Administration Impression 1. jhonatan 2. s/p fall 3. htn 4. hld 5. alzheimers dementia Plan - monitor charley - renal function had stabilizes - avoid nsaids - monitor bp - encourage po intake - outpt follow up
--- NOTE | 2020-05-30 14:54 | PN ---
Progress Note (short form) - Note Progress Note: NEUROSURGERY In ICU Denies neck pain, UE/LE weakness, numbness, bowel/urinary incontinence PE: Tmax 99, AF, VSS In good spirit; sitting up in chair General- unremarkable, speech fkuent, memory poor; Neck- with no tenderness, slight kyphosis CN- intact; Motor- at least 4/5 B UE/LE; Sensation- intact LT; DTR- hyporeflexic Cervical DDD with spondylosis and kyphosis; small central disc protrusion C3-4 > C4-5, partially calcified Doubt acute herniation given asymptomatic nature of the dz PT for mobility and safety No neurosurgical intervention indicated Followup outpatient PRN increasing neck pain or UE symptoms
[2020-05-30 15:41] LABS: BASO % 0.9 % (0-2.0); EOS % 1.1 % (0-4.5); HEMATOCRIT 37.9 % (32.4-45.2); HEMOGLOBIN 12.3 GM/dL (10.7-15.3); LYMPH % 25.7 % (8-40); MCH 28.3 pg (25.7-33.7); MCHC 32.3 g/dl (32.0-36.0); MEAN CELL VOLUME 87.4 fl (80-96); MEAN PLT VOLUME 7.6 fl (7.5-11.1); MONO % 5.1 % (3.8-10.2); NEUT % 67.2 % (42.8-82.8); PLATELET COUNT 364 K/MM3 (134-434); RBC 4.34 M/mm3 (3.60-5.2); RDW 15.3 % (11.6-15.6); WHITE BLOOD COUNT 9.5 K/mm3 (4.0-10.0)
[2020-05-30 16:09] LABS: ALBUMIN 3.3 g/dl (3.4-5.0); BILIRUBIN,TOTAL 0.3 mg/dL (0.2-1); BLOOD UREA NITROGEN 31.9 mg/dL (7-18); CALCIUM 9.6 mg/dL (8.5-10.1); CREATININE 1.4 mg/dL (0.55-1.3); MAGNESIUM 2.2 mg/dL (1.8-2.4); POTASSIUM 4.8 mmol/L (3.5-5.1)
[2020-05-30] MEDS: ATORVASTATIN CA 80 MG TABLET (FP) PO SCH (22:12)
[2020-05-31] MEDS: HEPARIN NA (PORCINE) 5,000 UNITS/ML 1ML VIAL SQ SCH ×3 (05:27→22:12)
[2020-05-31 09:17] LABS: BASO % 0.9 % (0-2.0); EOS % 1.7 % (0-4.5); HEMATOCRIT 36.1 % (32.4-45.2); HEMOGLOBIN 11.7 GM/dL (10.7-15.3); LYMPH % 31.7 % (8-40); MCH 28.3 pg (25.7-33.7); MCHC 32.6 g/dl (32.0-36.0); MONO % 5.1 % (3.8-10.2); NEUT % 60.6 % (42.8-82.8); PLATELET COUNT 339 K/MM3 (134-434); RBC 4.15 M/mm3 (3.60-5.2); RDW 15.2 % (11.6-15.6); WHITE BLOOD COUNT 10.1 K/mm3 (4.0-10.0)
--- NOTE | 2020-05-31 09:26 | PN ---
Progress Note (short form) - Note Progress Note: NEUROSURGERY In ICU Denies neck pain, UE/LE weakness, numbness, bowel/urinary incontinence PE: Tmax 99, AF, VSS In good spirit; sitting up in bed eating breakfast; confused General- unremarkable, speech fkuent, memory poor; Neck- with no tenderness, slight kyphosis CN- intact; Motor- 4+/5 B UE/LE; Sensation- intact LT; DTR- hyporeflexic Cervical DDD with spondylosis and kyphosis; small central disc protrusion C3-4 > C4-5, partially calcified Doubt acute herniation given asymptomatic nature of the dz PT for mobility and safety No neurosurgical intervention indicated
[2020-05-31 09:46] LABS: ALBUMIN 3.2 g/dl (3.4-5.0); BILIRUBIN,TOTAL 0.4 mg/dL (0.2-1); CALCIUM 9.2 mg/dL (8.5-10.1); MAGNESIUM 2.2 mg/dL (1.8-2.4); POTASSIUM 4.6 mmol/L (3.5-5.1); TOT PROT 6.6 g/dl (6.4-8.2)
[2020-05-31] MEDS: LISINOPRIL 5 MG TABLET (FP) PO SCH (10:04)
[2020-05-31] MEDS: metoPROLOL SUCCINATE 25 MG TAB.SR.24H (FP) PO SCH (10:04)
[2020-05-31] MEDS: ASPIRIN 81 MG CHEWABLE TABLETS PO SCH (10:04)
--- NOTE | 2020-05-31 11:19 | PN ---
Progress Note, Physician Chief Complaint: Seen and examined in bed in ICU (tele border). No complaints offered. No further epiosodes of NSVT Ambulated 60feet with PT. JOHNY PCR neg. Plan to reurtn to [facility] tomorrow History of Present Illness: 75 year old female (resident of [facility]). Patient was admitted on 05/25/2020 after she fell at her facility. Per admitting report, patient fell and was unable to get back up on her own. No reported prodormal symptoms. She was found to have JHONATAN (unknown baseline). Routine echo done today low EF and cardiology was consulted. C spine shows c3-c4 disc herniation. She was evaluated by neurosurgery and a soft collar recommended. - Current Medication List Current Medications: Active Medications Acetaminophen (Tylenol -) 325 mg PO Q4H PRN PRN Reason: MODERATE PAIN 4-6 Aspirin (Asa -) 81 mg PO DAILY [facility] Last Admin: 05/31/20 10:04 Dose: 81 mg Documented by: Atorvastatin Calcium (Lipitor -) 80 mg PO HS [facility] Last Admin: 05/30/20 22:12 Dose: 80 mg Documented by: Heparin Sodium (Porcine) (Heparin -) 5,000 unit SQ TID [facility] Last Admin: 05/31/20 05:27 Dose: 5,000 unit Documented by: Lisinopril (Prinivil) 5 mg PO DAILY [facility] Last Admin: 05/31/20 10:04 Dose: 5 mg Documented by: Metoprolol Succinate (Toprol Xl -) 50 mg PO DAILY [facility] Last Admin: 05/31/20 10:04 Dose: 50 mg Documented by: - Objective Vital Signs: Vital Signs Temperature 98.2 F 05/31/20 06:00 Pulse Rate 71 05/31/20 08:20 Respiratory Rate 12 05/31/20 09:00 Blood Pressure 140/76 05/31/20 08:20 O2 Sat by Pulse Oximetry (%) 100 05/31/20 09:00 Additional Findings/Remarks: Constitutional: Yes: Well Nourished, No Distress, Calm, Other (forgetful) Eyes: Yes: WNL, Conjunctiva Clear HENT: Yes: WNL, Atraumatic, Normocephalic Neck: Yes: Supple, Trachea Midline, Tenderness (cervical collar in plam) Cardiovascular: Yes: WNL, Regular Rate and Rhythm Respiratory: Yes: WNL, Regular, CTA Bilaterally Gastrointestinal: Yes: WNL, Normal Bowel Sounds, Soft ...Rectal Exam: Yes: Deferred Genitourinary: Yes: WNL Breast(s): Yes: WNL Musculoskeletal: Yes: WNL Extremities: Yes: WNL Edema: No Peripheral Pulses WNL: Yes Peripheral Pulses: Left Radial: 2+, Right Radial: 2+, Left Doralis Pedis: 2+, Right Dorsalis Pedis: 2+, Left Femoral: 2+, Right Femoral: 2+ Integumentary: Yes: WNL Neurological: Yes: Alert, Other (forgetful) ...Motor Strength: WNL Psychiatric: Yes: Alert, Oriented Labs: CBC, BMP 05/31/20 08:18 05/31/20 06:00 INR, PTT INR 0.97 (0.83-1.09) 05/25/20 18:45 Problem List - Problems (1) COVID-19 ruled out Assessment/Plan: negative pcr Code(s): Z03.818 - ENCNTR FOR OBS FOR SUSP EXPSR TO OTH BIOLG AGENTS RULED OUT (2) Prophylactic measure Assessment/Plan: FEN Fluids: adequate PO intake Electrolytes: monitor & replete as needed Nutrition: diabetic diet DVT moderate risk sq heparin Dispo Maintain as inpatient full code discharge planning back to [facility] Code(s): Z29.9 - ENCOUNTER FOR PROPHYLACTIC MEASURES, UNSPECIFIED (3) JHONATAN (acute kidney injury) Assessment/Plan: Cr now 1.0 avoid nephrotoxic agents appreciate renal consultation encourage po intake Problems reviewed: Yes Code(s): N17.9 - ACUTE KIDNEY FAILURE, UNSPECIFIED (4) Cervical disc herniation Assessment/Plan: f/u with Dr Tinoco out outpt soft collar in place when oob PT for mobility and safety No neurosurgical intervention indicated Followup outpatient PRN increasing neck pain or UE symptoms Code(s): M50.20 - OTHER CERVICAL DISC DISPLACEMENT, UNSP CERVICAL REGION (5) Fall Assessment/Plan: PT for mobility and safety No neurosurgical intervention indicated Followup outpatient PRN increasing neck pain or UE symptoms Code(s): W19.XXXA - UNSPECIFIED FALL, INITIAL ENCOUNTER (6) Syncope Assessment/Plan: monitor on tele for any arrhythmias. monitor vitals labs, orthostatics head ct negative for acute pathology Code(s): R55 - SYNCOPE AND COLLAPSE (7) Systolic CHF Assessment/Plan: TTE: severe global LV systolic dysfunction LVEF 30-35%. cardiology follwoing, appreciate c/w metoprolol c/w lisinopril 2.5mg no diuretics recommended as no signs of volume overload. Code(s): I50.20 - UNSPECIFIED SYSTOLIC (CONGESTIVE) HEART FAILURE (8) Weakness Assessment/Plan: c/w PT ambulting >60 ft with walker return back to assited living Code(s): R53.1 - WEAKNESS Visit type - Emergency Visit Emergency Visit: Yes ED Registration Date: 05/25/20 Care time: The patient presented to the Emergency Department on the above date and was hospitalized for further evaluation of their emergent condition. - New Patient This patient is new to me today: No - Critical Care Critical Care patient: No - Discharge Referral Referred to [facility] Med P.C.: No - Medication Review Med list reviewed for High Risk Meds patients 65 and older: Yes
--- NOTE | 2020-05-31 13:09 | PN ---
Progress Note, Physician History of Present Illness: Pt seen and examined at bedside. She is awake and alert. She is tolerating diet. - Current Medication List Current Medications: Active Medications Acetaminophen (Tylenol -) 325 mg PO Q4H PRN PRN Reason: MODERATE PAIN 4-6 Aspirin (Asa -) 81 mg PO DAILY [facility] Last Admin: 05/31/20 10:04 Dose: 81 mg Documented by: Atorvastatin Calcium (Lipitor -) 80 mg PO HS [facility] Last Admin: 05/30/20 22:12 Dose: 80 mg Documented by: Heparin Sodium (Porcine) (Heparin -) 5,000 unit SQ TID [facility] Last Admin: 05/31/20 05:27 Dose: 5,000 unit Documented by: Lisinopril (Prinivil) 5 mg PO DAILY [facility] Last Admin: 05/31/20 10:04 Dose: 5 mg Documented by: Metoprolol Succinate (Toprol Xl -) 50 mg PO DAILY [facility] Last Admin: 05/31/20 10:04 Dose: 50 mg Documented by: - Objective Vital Signs: Vital Signs Temperature 98 F 05/31/20 13:01 Pulse Rate 74 05/31/20 13:01 Respiratory Rate 12 05/31/20 13:01 Blood Pressure 140/76 05/31/20 08:20 O2 Sat by Pulse Oximetry (%) 100 05/31/20 09:00 Constitutional: Yes: Calm Eyes: Yes: Conjunctiva Clear HENT: Yes: Atraumatic Neck: Yes: Supple Cardiovascular: Yes: S1, S2 Respiratory: Yes: CTA Bilaterally Gastrointestinal: Yes: Normal Bowel Sounds, Soft Genitourinary: Yes: WNL Musculoskeletal: Yes: WNL Edema: No Neurological: Yes: Confusion Labs: CBC, BMP 05/31/20 08:18 05/31/20 06:00 INR, PTT INR 0.97 (0.83-1.09) 05/25/20 18:45 Problem List - Problems (1) JHONATAN (acute kidney injury) Code(s): N17.9 - ACUTE KIDNEY FAILURE, UNSPECIFIED (2) Fall Code(s): W19.XXXA - UNSPECIFIED FALL, INITIAL ENCOUNTER Assessment/Plan Current Medications Generic Name Dose Route Start Last Admin Trade Name Freq PRN Reason Stop Dose Admin Acetaminophen 325 mg 05/25/20 23:50 Tylenol - PO Q4H PRN MODERATE PAIN 4-6 Aspirin 81 mg 05/26/20 10:00 05/31/20 10:04 Asa - PO 81 mg DAILY [facility] Administration Atorvastatin Calcium 80 mg 05/26/20 22:00 05/30/20 22:12 Lipitor - PO 80 mg HS [facility] Administration Heparin Sodium (Porcine) 5,000 unit 05/25/20 23:45 05/31/20 05:27 Heparin - SQ 5,000 unit TID [facility] Administration Lisinopril 5 mg 05/30/20 10:00 05/31/20 10:04 Prinivil PO 5 mg DAILY [facility] Administration Metoprolol Succinate 50 mg 05/30/20 10:00 05/31/20 10:04 Toprol Xl - PO 50 mg DAILY [facility] Administration Impression 1. jhonatan 2. s/p fall 3. htn 4. hld 5. 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
[2020-05-31] MEDS: ATORVASTATIN CA 80 MG TABLET (FP) PO SCH (22:12)
[2020-06-01] MEDS ORDERED: SODIUM CHLORIDE 250 ML IV STA (01:06)
[2020-06-01] MEDS: HEPARIN NA (PORCINE) 5,000 UNITS/ML 1ML VIAL SQ SCH ×2 (05:55→14:32)
[2020-06-01] MEDS ORDERED: LISINOPRIL 5 MG TABLET (FP) PO SCH (07:15)
[2020-06-01 07:24] LABS: BASO % 0.9 % (0-2.0); EOS % 1.6 % (0-4.5); HEMATOCRIT 34.2 % (32.4-45.2); LYMPH % 27.8 % (8-40); MCH 28.2 pg (25.7-33.7); MCHC 32.2 g/dl (32.0-36.0); MEAN CELL VOLUME 87.6 fl (80-96); MEAN PLT VOLUME 8.4 fl (7.5-11.1); MONO % 7.8 % (3.8-10.2); NEUT % 61.9 % (42.8-82.8); PLATELET COUNT 312 K/MM3 (134-434); RDW 15.3 % (11.6-15.6)
[2020-06-01 07:46] LABS: BILIRUBIN,TOTAL 0.7 mg/dL (0.2-1); CREATININE 0.9 mg/dL (0.55-1.3); MAGNESIUM 2.2 mg/dL (1.8-2.4); POTASSIUM 5.1 mmol/L (3.5-5.1); TOT PROT 6.4 g/dl (6.4-8.2)
[2020-06-01] MEDS: ASPIRIN 81 MG CHEWABLE TABLETS PO SCH (09:48)
[2020-06-01] MEDS: metoPROLOL SUCCINATE 25 MG TAB.SR.24H (FP) PO SCH (09:50)
[2020-06-01] MEDS ORDERED: metoPROLOL SUCCINATE 25 MG TAB.SR.24H (FP) PO SCH (10:18)
--- NOTE | 2020-06-01 10:25 | PN ---
Progress Note (short form) - Note Progress Note: NEUROSURGERY In ICU Denies neck pain, UE/LE weakness, numbness, bowel/urinary incontinence No new complaint Wants to return to nursing facility PE: AF, VSS; O2 sat 90's Sitting up; speech fluent; confused General- unremarkable, speech fkuent, memory poor; Neck- with no tenderness, slight kyphosis CN- intact; Motor- 4+/5 B UE/LE; Sensation- intact LT; DTR- hyporeflexic Cervical DDD with spondylosis and kyphosis; small central disc protrusion C3-4 > C4-5, partially calcified No acute herniation given asymptomatic nature of the dz PT for mobility and safety Will sign off, reconsult prn
--- NOTE | 2020-06-01 12:36 | DS ---
Physical Exam: SUBJECTIVE: Patient seen and examined OBJECTIVE: Vital Signs Period Temp Pulse Resp BP Sys/Ontiveros Pulse Ox Last 24 Hr 98 F-98.2 F 59-90 12-26 83-141/40-72 91-100 PHYSICAL EXAM Constitutional: Yes: Well Nourished, No Distress, Calm, Other (forgetful) Eyes: Yes: WNL, Conjunctiva Clear HENT: Yes: WNL, Atraumatic, Normocephalic Neck: Yes: Supple, Trachea Midline, Tenderness (cervical collar in plam) Cardiovascular: Yes: WNL, Regular Rate and Rhythm Respiratory: Yes: WNL, Regular, CTA Bilaterally Gastrointestinal: Yes: WNL, Normal Bowel Sounds, Soft ...Rectal Exam: Yes: Deferred Genitourinary: Yes: WNL Breast(s): Yes: WNL Musculoskeletal: Yes: WNL Extremities: Yes: WNL Edema: No Peripheral Pulses WNL: Yes Peripheral Pulses: Left Radial: 2+, Right Radial: 2+, Left Doralis Pedis: 2+, Right Dorsalis Pedis: 2+, Left Femoral: 2+, Right Femoral: 2+ Integumentary: Yes: WNL Neurological: Yes: Alert, Other (forgetful) ...Motor Strength: WNL Psychiatric: Yes: Alert, Oriented LABS Laboratory Results - last 24 hr 06/01/20 06/01/20 05:15 05:15 WBC 11.0 H RBC 3.90 Hgb 11.0 Hct 34.2 MCV 87.6 MCH 28.2 MCHC 32.2 RDW 15.3 Plt Count 312 MPV 8.4 Absolute Neuts (auto) 6.8 Neutrophils % 61.9 Lymphocytes % 27.8 Monocytes % 7.8 Eosinophils % 1.6 Basophils % 0.9 Nucleated RBC % 0 Sodium 140 Potassium 5.1 Chloride 108 H Carbon Dioxide 29 Anion Gap 3 L BUN 19.0 H Creatinine 0.9 Est GFR (CKD-EPI)AfAm 71.98 Est GFR (CKD-EPI)NonAf 62.11 Random Glucose 80 Calcium 9.0 Magnesium 2.2 Total Bilirubin 0.7 AST 55 H ALT 59 Alkaline Phosphatase 121 H Total Protein 6.4 Albumin 3.0 L HOSPITAL COURSE: Date of Admission:05/25/20 Date of Discharge: 06/01/20 75 year old female (resident of [facility]). Patient was admitted on 05/25/2020 after she fell at her facility. Per admitting report, patient fell a nd was unable to get back up on her own. No reported prodormal symptoms. She was found to have JHONATAN (unknown baseline). Routine echo done today low EF and cardiology was consulted. C spine shows c3-c4 disc herniation. She was evaluated by neurosurgery and a soft collar recommended. roblem List - Problems (1) COVID-19 ruled out Assessment/Plan: negative pcr Code(s): Z03.818 - ENCNTR FOR OBS FOR SUSP EXPSR TO OTH BIOLG AGENTS RULED OUT (2) Prophylactic measure Assessment/Plan: FEN Fluids: adequate PO intake Electrolytes: monitor & replete as needed Nutrition: diabetic diet Dispo discharge back to [facility] Code(s): Z29.9 - ENCOUNTER FOR PROPHYLACTIC MEASURES, UNSPECIFIED (3) JHONATAN (acute kidney injury) Assessment/Plan: Cr now 1.0 avoid nephrotoxic agents appreciate renal consultation encourage po intake Problems reviewed: Yes Code(s): N17.9 - ACUTE KIDNEY FAILURE, UNSPECIFIED (4) Cervical disc herniation Assessment/Plan: f/u with Dr Tinoco out outpt soft collar in place when oob PT for mobility and safety No neurosurgical intervention indicated Followup outpatient PRN increasing neck pain or UE symptoms Code(s): M50.20 - OTHER CERVICAL DISC DISPLACEMENT, UNSP CERVICAL REGION (5) Fall Assessment/Plan: PT for mobility and safety No neurosurgical intervention indicated Followup outpatient PRN increasing neck pain or UE symptoms Code(s): W19.XXXA - UNSPECIFIED FALL, INITIAL ENCOUNTER (6) Syncope Assessment/Plan: monitor on tele for any arrhythmias. monitor vitals labs, orthostatics head ct negative for acute pathology Code(s): R55 - SYNCOPE AND COLLAPSE (7) Systolic CHF Assessment/Plan: TTE: severe global LV systolic dysfunction LVEF 30-35%. cardiology follwoing, appreciate c/w metoprolol c/w lisinopril 2.5mg no diuretics recommended as no signs of volume overload. Code(s): I50.20 - UNSPECIFIED SYSTOLIC (CONGESTIVE) HEART FAILURE (8) Weakness Assessment/Plan: c/w PT ambulting >60 ft with walker return back to assited living Code(s): R53.1 - WEAKNESS Cleared for discharge back to [facility] Minutes to complete discharge: 45 Discharge Summary Problems reviewed: Yes Reason For Visit: ACUTE KIDNEY INJURY,SYNCOPE,FALL Current Active Problems JHONATAN (acute kidney injury) (Acute) COVID-19 ruled out (Acute) Cervical disc herniation (Acute) DVT prophylaxis (Acute) Fall (Acute) Prophylactic measure (Acute) Syncope (Acute) Systolic CHF (Acute) Weakness (Acute) Condition: Improved - Instructions Diet, Activity, Other Instructions: DISCHARGE YOUR VISIT You came to the hospital because you fell and sustained a cervical fracture. You were seen by the neurosurgeon and not surgery was needed. You will wear a soft when out of bed and when walking. A physical therapist will work for you to regain full mobility. Your blood pressure was also low. We stopped your lisinipril. Only take the metoprolol. Follow with your primary provider to see if you need to be restarted back on the medication MEDICATIONS Please continue to take your home medications as prescribed. There was some changes STOP Lisinipril METOPROLOL decreased to daily DIET Continue your home diet ADDITIONAL CARE Please make an appointment to see your primary care provider, 1 week from today. ADDITIONAL INFORMATION Please call 911 or come directly to the emergency department if you experience unusual headache, vision change, shortness of breath, chest pain, numbness, tingling, loss of alertness/awareness, loss of function, unusual bleeding or any alarming symptoms. Thank you for allowing me to care for you. Zain Lua, WERNERP, [facility] [phone] Referrals: Himanshu Gray [Primary Care Provider] - 1 Week (Blood pressure medication adjustment) Disposition: LONG TERM FACILITY - Home Medications Comprehensive Discharge Medication List: Ambulatory Orders Acetaminophen [Tylenol] 325 mg PO BID 05/25/20 Aspirin [ASA -] 81 mg PO DAILY 05/25/20 Haloperidol Decanoate [Haldol Decanoate 100] 100 mg IM MONTHLY 05/25/20 Atorvastatin Ca [Lipitor] 80 mg PO HS tablet 06/01/20 Metoprolol Succinate [Toprol XL -] 25 mg PO DAILY #30 tab.sr.24h 06/01/20 Problem List - Problems (1) COVID-19 ruled out Code(s): Z03.818 - ENCNTR FOR OBS FOR SUSP EXPSR TO OT BIOLG AGENTS RULED OUT (2) Prophylactic measure Code(s): Z29.9 - ENCOUNTER FOR PROPHYLACTIC MEASURES, UNSPECIFIED (3) JHONATAN (acute kidney injury) Code(s): N17.9 - ACUTE KIDNEY FAILURE, UNSPECIFIED (4) Cervical disc herniation Code(s): M50.20 - OTHER CERVICAL DISC DISPLACEMENT, UNSP CERVICAL REGION (5) Fall Code(s): W19.XXXA - UNSPECIFIED FALL, INITIAL ENCOUNTER (6) Syncope Code(s): R55 - SYNCOPE AND COLLAPSE (7) Systolic CHF Code(s): I50.20 - UNSPECIFIED SYSTOLIC (CONGESTIVE) HEART FAILURE (8) Weakness Code(s): R53.1 - WEAKNESS This patient is new to me today: No Emergency Visit: No Critical Care patient: No - Discharge Referral Referred to [facility] Med P.C.: No
[2020-06-01 14:27] VITALS: BP 120/55; PULSE 83; TEMP 97.3
--- NOTE | 2020-06-01 15:33 | PN ---
Progress Note, Physician History of Present Illness: Pt seen and examined at bedside. She is awake and alert. She remains confused. - Current Medication List Current Medications: Active Medications Acetaminophen (Tylenol -) 325 mg PO Q4H PRN PRN Reason: MODERATE PAIN 4-6 Aspirin (Asa -) 81 mg PO DAILY [facility] Last Admin: 06/01/20 09:48 Dose: 81 mg Documented by: Atorvastatin Calcium (Lipitor -) 80 mg PO HS [facility] Last Admin: 05/31/20 22:12 Dose: 80 mg Documented by: Heparin Sodium (Porcine) (Heparin -) 5,000 unit SQ TID [facility] Last Admin: 06/01/20 14:32 Dose: Not Given Documented by: Metoprolol Succinate (Toprol Xl -) 25 mg PO DAILY [facility] - Objective Vital Signs: Vital Signs Temperature 97.3 F L 06/01/20 14:00 Pulse Rate 83 06/01/20 14:00 Respiratory Rate 18 06/01/20 14:00 Blood Pressure 120/55 L 06/01/20 14:00 O2 Sat by Pulse Oximetry (%) 100 06/01/20 14:00 Constitutional: Yes: Calm Eyes: Yes: Conjunctiva Clear HENT: Yes: Atraumatic Neck: Yes: Supple Cardiovascular: Yes: S1, S2 Respiratory: Yes: CTA Bilaterally Gastrointestinal: Yes: Soft Genitourinary: Yes: WNL Musculoskeletal: Yes: WNL Edema: No Neurological: Yes: Oriented Psychiatric: Yes: Oriented Labs: CBC, BMP 06/01/20 05:15 06/01/20 05:15 INR, PTT INR 0.97 (0.83-1.09) 05/25/20 18:45 Problem List - Problems (1) JHONATAN (acute kidney injury) Code(s): N17.9 - ACUTE KIDNEY FAILURE, UNSPECIFIED (2) Fall Code(s): W19.XXXA - UNSPECIFIED FALL, INITIAL ENCOUNTER Assessment/Plan Current Medications Generic Name Dose Route Start Last Admin Trade Name Freq PRN Reason Stop Dose Admin Acetaminophen 325 mg 05/25/20 23:50 Tylenol - PO Q4H PRN MODERATE PAIN 4-6 Aspirin 81 mg 05/26/20 10:00 06/01/20 09:48 Asa - PO 81 mg DAILY [facility] Administration Atorvastatin Calcium 80 mg 05/26/20 22:00 05/31/20 22:12 Lipitor - PO 80 mg HS PAWAN Administration Heparin Sodium (Porcine) 5,000 unit 05/25/20 23:45 06/01/20 14:32 Heparin - SQ Not Given TID PAWAN Metoprolol Succinate 25 mg 06/01/20 10:18 Toprol Xl - PO DAILY PWAAN Selected Entries 06/01/20 06/01/20 12:00 14:00 Blood Pressure 121/82 120/55 L Impression 1. jhonatan 2. s/p fall 3. htn 4. hld 5. alzheimers dementia Plan - monitor renal function - monitor bp - can follow as outpt - encourage po intake
== END 2020-06-01 16:20 | DRG 552 ==
LOC: JER 17:10 → JERBED 21:25 → JICU 05-26 14:45
PROVIDERS: ADMIT Internal Medicine; ATTEND Nurse Practitioner Acute Care
DX: M47.812 Spondylosis without myelopathy or radiculopathy, cervical region (principal); N17.9 Acute kidney failure, unspecified; I42.9 Cardiomyopathy, unspecified; I47.1 Supraventricular tachycardia; I13.0 Hypertensive heart and chronic kidney disease with heart failure and stage 1 through stage 4 chronic kidney disease, or unspecified chronic kidney disease; I50.22 Chronic systolic (congestive) heart failure; M50.21 Other cervical disc displacement, high cervical region; I10 Essential (primary) hypertension; E78.5 Hyperlipidemia, unspecified; F25.9 Schizoaffective disorder, unspecified; R55 Syncope and collapse; W18.39XA Other fall on same level, initial encounter; K59.09 Other constipation; Y92.098 Other place in other non-institutional residence as the place of occurrence of the external cause; R53.1 Weakness; G30.9 Alzheimer's disease, unspecified; F02.80 Dementia in other diseases classified elsewhere, unspecified severity, without behavioral disturbance, psychotic disturbance, mood disturbance, and anxiety; I34.0 Nonrheumatic mitral (valve) insufficiency; M40.202 Unspecified kyphosis, cervical region; N18.9 Chronic kidney disease, unspecified
CPT/HCPCS: 36415; 70450-TC; 71045-TC-FY; 72125-TC; 76775-TC; 80053; 81003; 82436; 82550; 82553; 82565; 82607; 83735; 84100; 84133; 84156; 84300; 84439; 84443; 84484; 85025; 85027; 85610; 85730; 87086; 93005; 93010; 93306-TC; 97116-GP; 97161-GP; 99285-25; J1644; U0003

== ENCOUNTER 2022-08-03 10:22 | Inpatient (IN) | payer OTHER ==
[2022-08-03 10:56] VITALS: BMI 26.8
[2022-08-03] MEDS ORDERED: SODIUM CHLORIDE 1,000 ML IV SCH ×2 (11:45→18:57)
[2022-08-03] MEDS ORDERED: ACETAMINOPHEN 500 MG TABLET (FP) ONE (12:37)
[2022-08-03 13:25] LABS: PH,URINE 5.5 (5.0-8.0); URINE APPEARANCE CLEAR; URINE BILIRUBIN NEGATIVE (NEGATIVE); URINE COLOR YELLOW; URINE GLUCOSE (UA) NEGATIVE (NEGATIVE); URINE KETONE NEGATIVE (NEGATIVE); URINE LEUK ESTERASE NEGATIVE (NEGATIVE); URINE NITRITE NEGATIVE (NEGATIVE); URINE PROTEIN NEGATIVE (NEGATIVE); URINE UROBILINOGEN 0.2 mg/dL (0.2-1.0)
[2022-08-03 14:15] LABS: BASO % 0.8 % (0-2.0); EOS % 1.2 % (0-4.5); HEMATOCRIT 36.6 % (32.4-45.2); LYMPH % 21.4 % (8-40); MCH 28.2 pg (25.7-33.7); MCHC 32.8 g/dl (32.0-36.0); MEAN PLT VOLUME 7.6 fl (7.5-11.1); MONO % 7.2 % (3.8-10.2); NEUT % 69.4 % (42.8-82.8); PLATELET COUNT 321 10^3/uL (134-434); RBC 4.25 M/mm3 (3.60-5.2); WHITE BLOOD COUNT 5.8 K/mm3 (4.0-10.0)
[2022-08-03 14:22] LABS: INR 0.95 (0.83-1.09); PROTHROMBIN TIME (PATIENT) 10.9 SEC (9.7-13.0)
[2022-08-03 14:25] LABS: ACTIVATED PTT 25.9 SECONDS (25.2-36.5)
[2022-08-03 14:33] LABS: CALCIUM 9.3 mg/dL (8.5-10.1)
[2022-08-03 14:34] LABS: ALBUMIN 3.9 g/dl (3.4-5.0)
[2022-08-03 14:36] LABS: BLOOD UREA NITROGEN 41.9 mg/dL (7-18)
[2022-08-03 14:37] LABS: CREATININE 1.9 mg/dL (0.55-1.3)
[2022-08-03 14:39] LABS: TOT PROT 7.5 g/dl (6.4-8.2)
[2022-08-03 14:40] LABS: BILIRUBIN,TOTAL 0.5 mg/dL (0.2-1)
[2022-08-03] MEDS ORDERED: ATORVASTATIN CA 80 MG TABLET (FP) ONE (21:10)
[2022-08-03] MEDS ORDERED: HEPARIN NA (PORCINE) 5,000 UNITS/ML 1ML VIAL ONE (21:10)
[2022-08-03] MEDS: ATORVASTATIN CA 80 MG TABLET (FP) PO SCH (21:18)
[2022-08-03] MEDS: HEPARIN NA (PORCINE) 5,000 UNITS/ML 1ML VIAL SQ SCH (21:18)
[2022-08-04] MEDS: SODIUM CHLORIDE 1,000 ML IV SCH ×2 (00:13→17:42)
[2022-08-04] MEDS: ASPIRIN 81 MG CHEWABLE TABLETS PO SCH (09:39)
[2022-08-04] MEDS: metoPROLOL SUCCINATE 25 MG TAB.SR.24H (FP) PO SCH (09:40)
[2022-08-04] MEDS: HEPARIN NA (PORCINE) 5,000 UNITS/ML 1ML VIAL SQ SCH ×2 (09:40→21:45)
[2022-08-04 09:42] LABS: CALCIUM 9.4 mg/dL (8.5-10.1)
[2022-08-04 09:43] LABS: BLOOD UREA NITROGEN 43.7 mg/dL (7-18)
[2022-08-04 09:46] LABS: CREATININE 1.8 mg/dL (0.55-1.3)
[2022-08-04] MEDS: ATORVASTATIN CA 80 MG TABLET (FP) PO SCH (21:45)
[2022-08-05] MEDS: ASPIRIN 81 MG CHEWABLE TABLETS PO SCH (10:47)
[2022-08-05] MEDS: HEPARIN NA (PORCINE) 5,000 UNITS/ML 1ML VIAL SQ SCH ×2 (10:47→21:27)
[2022-08-05] MEDS: metoPROLOL SUCCINATE 25 MG TAB.SR.24H (FP) PO SCH (10:48)
[2022-08-05] MEDS: SODIUM CHLORIDE 1,000 ML IV SCH (10:54)
[2022-08-05 11:31] LABS: BASO % 0.7 % (0-2.0); EOS % 2.2 % (0-4.5); HEMATOCRIT 37.8 % (32.4-45.2); HEMOGLOBIN 12.5 GM/dL (10.7-15.3); LYMPH % 43.4 % (8-40); MCH 29.1 pg (25.7-33.7); MEAN CELL VOLUME 88.2 fl (80-96); MEAN PLT VOLUME 7.2 fl (7.5-11.1); MONO % 7.9 % (3.8-10.2); NEUT % 45.8 % (42.8-82.8); PLATELET COUNT 272 10^3/uL (134-434); RBC 4.29 M/mm3 (3.60-5.2); WHITE BLOOD COUNT 6.6 K/mm3 (4.0-10.0)
[2022-08-05 11:45] LABS: ALBUMIN 3.8 g/dl (3.4-5.0); BLOOD UREA NITROGEN 36.3 mg/dL (7-18); CALCIUM 9.3 mg/dL (8.5-10.1); MAGNESIUM 2.5 mg/dL (1.8-2.4)
[2022-08-05 11:48] LABS: CREATININE 1.6 mg/dL (0.55-1.3); PHOSPHOROUS 3.6 mg/dL (2.5-4.9)
[2022-08-05 11:51] LABS: BILIRUBIN,TOTAL 0.4 mg/dL (0.2-1); TOT PROT 7.6 g/dl (6.4-8.2)
[2022-08-05] MEDS ORDERED: SODIUM CHLORIDE 0.45% 1,000 ML IV SCH (12:15)
[2022-08-05] MEDS: ATORVASTATIN CA 80 MG TABLET (FP) PO SCH (21:27)
[2022-08-06] MEDS: HEPARIN NA (PORCINE) 5,000 UNITS/ML 1ML VIAL SQ SCH ×2 (09:58→21:50)
[2022-08-06] MEDS: metoPROLOL SUCCINATE 25 MG TAB.SR.24H (FP) PO SCH (09:58)
[2022-08-06] MEDS: ASPIRIN 81 MG CHEWABLE TABLETS PO SCH (09:58)
[2022-08-06 10:51] LABS: EOS % 1.5 % (0-4.5); HEMATOCRIT 32.8 % (32.4-45.2); LYMPH % 37.7 % (8-40); MCH 29.1 pg (25.7-33.7); MCHC 33.7 g/dl (32.0-36.0); MEAN CELL VOLUME 86.4 fl (80-96); MEAN PLT VOLUME 7.1 fl (7.5-11.1); MONO % 8.4 % (3.8-10.2); NEUT % 51.4 % (42.8-82.8); PLATELET COUNT 268 10^3/uL (134-434); RBC 3.79 M/mm3 (3.60-5.2); RDW 13.9 % (11.6-15.6); WHITE BLOOD COUNT 6.7 K/mm3 (4.0-10.0)
[2022-08-06 11:10] LABS: ALBUMIN 3.2 g/dl (3.4-5.0); BLOOD UREA NITROGEN 27.8 mg/dL (7-18); CALCIUM 9.2 mg/dL (8.5-10.1)
[2022-08-06 11:11] LABS: MAGNESIUM 2.3 mg/dL (1.8-2.4)
[2022-08-06 11:13] LABS: CREATININE 1.2 mg/dL (0.55-1.3); PHOSPHOROUS 3.4 mg/dL (2.5-4.9)
[2022-08-06 11:15] LABS: BILIRUBIN,TOTAL 0.3 mg/dL (0.2-1); TOT PROT 6.6 g/dl (6.4-8.2)
[2022-08-06] MEDS: ATORVASTATIN CA 80 MG TABLET (FP) PO SCH (21:50)
[2022-08-07] MEDS: ASPIRIN 81 MG CHEWABLE TABLETS PO SCH (10:55)
[2022-08-07] MEDS: metoPROLOL SUCCINATE 25 MG TAB.SR.24H (FP) PO SCH (10:56)
[2022-08-07] MEDS: HEPARIN NA (PORCINE) 5,000 UNITS/ML 1ML VIAL SQ SCH (10:56)
[2022-08-07 17:02] VITALS: BP 135/62; PULSE 80; RESP 16; TEMP 98.8
== END 2022-08-07 17:40 | DRG 682 ==
LOC: JER 10:22 → OBSVTOIN 15:29 → JERBED 15:29 → J5S 08-04 01:59
PROVIDERS: ADMIT Internal Medicine; ATTEND Internal Medicine
DX: N17.9 Acute kidney failure, unspecified (principal); G93.41 Metabolic encephalopathy; G45.9 Transient cerebral ischemic attack, unspecified; E78.5 Hyperlipidemia, unspecified; R56.9 Unspecified convulsions; F25.9 Schizoaffective disorder, unspecified; F02.80 Dementia in other diseases classified elsewhere, unspecified severity, without behavioral disturbance, psychotic disturbance, mood disturbance, and anxiety; G30.9 Alzheimer's disease, unspecified; I34.0 Nonrheumatic mitral (valve) insufficiency; R41.82 Altered mental status, unspecified; I11.0 Hypertensive heart disease with heart failure; I50.9 Heart failure, unspecified; E66.9 Obesity, unspecified; Z68.26 Body mass index [BMI] 26.0-26.9, adult
CPT/HCPCS: 36415; 70450-TC; 71045-TC-FY; 76775-TC; 76856-TC; 80048; 80053; 80061; 81003; 82550; 82607; 83036; 83605; 83735; 84100; 84443; 84484; 85025; 85610; 85730; 86780; 87086; 93005; 93010; 93306-TC; 97116-GP; 97161-GP; 99285-25; C9803-CS; J1644; U0003; U0005